=== PATIENT | female | born 1965 | race African-American/Black ===

== ENCOUNTER 2018-03-28 21:51 | Emergency (ER) | payer OTHER, SELFPAY ==
[2018-03-28] MEDS ORDERED: NA CHLORIDE 0.9% 1,000 ML ONE (23:36)
[2018-03-28 23:40] LABS: Absolute Monocytes 0.9 K/uL (0.1-1.3); Absolute Neutrophil 5.7 K/uL (1.8-8.0); Basophils % 0.6 % (0-1.3); Eosinophils % 1.2 % (0-4.4); Hematocrit 44.2 % (36.0-45.0); Lymphocytes % 22.7 % (15.3-44.8); MCH 33.7 pg (27.0-35.0); MCV 98.8 fL (80-100); MPV 9.6 fL (7.6-11.3); Monocytes % 9.8 % (3.3-12.3); RBC Red Blood Cell Count 4.47 M/uL (3.86-4.86)
[2018-03-28] MEDS ORDERED: TETRACAINE HCL 0.5% 2ML OPTH ONE (23:42)
[2018-03-29 00:13] LABS: ALT/SGPT 20 U/L (12-78); AST/SGOT 11 U/L (15-37); Albumin 3.6 g/dL (3.4-5.0); Alkaline Phosphatase 185 U/L (45-117); BUN Blood Urea Nitrogen 17 mg/dL (7-18); Bicarbonate 22 mmol/L (21-32); Bilirubin Total 0.3 mg/dL (0.2-1.0); Glucose Level 420 mg/dL (74-106); Potassium 3.8 mmol/L (3.5-5.1); Sodium Level 133 mmol/L (136-145)
[2018-03-29] MEDS ORDERED: NA CHLORIDE 0.9% 1,000 ML ONE (00:44)
[2018-03-29 00:57] LABS: Urine Blood NEGATIVE (NEG); Urine Glucose 2+ (NEG); Urine Protein NEGATIVE (NEG); Urine pH 5.5 (5.0-7.0)
--- NOTE | 2018-03-29 01:33 | ER ---
Nurse's Notes [facility] Name: Bela Tilley Age: 52 yrs Sex: Female : 1965 Arrival Date: 03/28/2018 Time: 21:56 Bed 23 Private MD: Diagnosis: Hyperglycemia, unspecified;Ocular pain, left eye Presentation: 03/28 22:00 Presenting complaint: Patient states: I have been dizzy and feeling funny for 3 weeks la1 so I checked my BGL and it was 531 at home a few minutes ago. Pt denies vomiting, denies pain. Pt denies known history of diabetes. Transition of care: patient was not received from another setting of care. Onset of symptoms was March 28, 2018. Risk Assessment: Do you want to hurt yourself or someone else? Patient reports no desire to harm self or others. Initial Sepsis Screen: Does the patient meet any 2 criteria? No. Patient's initial sepsis screen is negative. Does the patient have a suspected source of infection? No. Patient's initial sepsis screen is negative. Care prior to arrival: None. 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 - Social history:: Smoking status: Patient/guardian denies using tobacco. - Ebola Screening: : No symptoms or risks identified at this time. Screenin:05 Abuse screen: Denies threats or abuse. Nutritional screening: No deficits noted. la1 Tuberculosis screening: No symptoms or risk factors identified. Fall Risk None identified. Assessment: 23:05 General: Appears in no apparent distress. Behavior is calm, cooperative. Pain: Denies la1 pain. Neuro: Level of Consciousness is awake, alert, obeys commands, Oriented to person, place, time, situation. Cardiovascular: Capillary refill < 3 seconds Patient's skin is warm and dry. Respiratory: Airway is patent Respiratory effort is even, unlabored, Respiratory pattern is regular, symmetrical, Breath sounds are clear bilaterally. GI: No signs and/or symptoms were reported involving the gastrointestinal system. : Reports urinary frequency. 23:55 Reassessment: Patient appears in no apparent distress at this time. No changes from la1 previously documented assessment. Patient and/or family updated on plan of care and expected duration. Pain level reassessed. 12 01:55 Reassessment: Patient and/or family updated on plan of care and expected duration. Pain bb level reassessed. Patient is alert, oriented x 3, equal unlabored respirations, skin warm/dry/pink. pt instructed on need for follow-up appt with PCP for further evaluation, treatment, education on newly diagnosed diabetes. Pt verbalized understanding of and agrees to plan of care discharge instructions given pt ambulated with steady gait to exit. Vital Signs: 03/28 22:02 Pulse 78; Resp 16; Temp 97.5; Pulse Ox 98% on R/A; Height 5 ft. 3 in. (160.02 cm); la1 22:02 BP 157 / 87; la1 12 01:56 BP 149 / 91; Pulse 86; Resp 16 S; Temp 98.5(O); Pulse Ox 99% on R/A; bb Visual Acuity: 03/28 23:22 Left Eye Visual acuity 20/20, ; Right Eye Visual acuity 20/20, ; Both Eyes Visual jmm acuity 20/20; Without Lenses; 03/29 00:38 Left Eye Visual acuity 20/20, Pupil size 4 mm, ; Right Eye Visual acuity 20/20, Pupil la1 size 4 mm, ; Both Eyes Visual acuity 20/20; Without Lenses; ED Course: 03/28 21:56 Patient arrived in ED. es 22:01 Triage completed. la1 22:01 Arm band placed on left wrist. la1 23:05 Enrique Galo, MELI is Primary Nurse. la1 23:06 Bed in low position. Call light in reach. la1 23:09 Xavi Licona PA is PHCP. jm 23:09 Juan Henderson MD is Attending Physician. jmm 23:13 Inserted saline lock: 20 gauge in right antecubital area, using aseptic technique. la1 Blood collected. 03/29 01:31 Saud Camejo MD is Referral Physician. jm 01:57 No provider procedures requiring assistance completed. IV discontinued, intact, bb bleeding controlled, No redness/swelling at site. Pressure dressing applied. Administered Medications: 03/28 23:35 Drug: NS 0.9% 1000 ml Route: IV; Rate: 1 bolus; Site: right antecubital; mg2 03/29 01:22 Follow up: Response: No adverse reaction; IV Status: Completed infusion mg2 03/28 23:35 Drug: Tetracaine Drops 0.5 % 1 drops Route: Ophthalmic; Site: left eye; mg2 03/29 01:22 Follow up: Response: No adverse reaction; Marked relief of symptoms mg2 00:38 Drug: NS 0.9% 1000 ml Route: IV; Rate: 1 bolus; Site: right antecubital; la1 Point of Care Testing: Blood Glucose: 03/28 22:06 Blood Glucose: 450 mg/dL; la1 03/29 01:28 Blood Glucose: 279 mg/dL; bb Ranges: Outcome: 01:32 Discharge ordered by . apoorva 01:57 Discharged to home ambulatory. bb 01:57 Condition: stable 01:57 Discharge instructions given to patient, Instructed on discharge instructions, follow up and referral plans. medication usage, Demonstrated understanding of instructions, follow-up care, medications, Prescriptions given X 1. 01:58 Patient left the ED. bb Signatures: Xavi Licona PA PA jmm Salyer, Edna es Ballard, Brenda, RN RN bb Enrique Galo RN RN la1 Dillon Erickson RN RN mg2 Corrections: (The following items were deleted from the chart) 03/28 22:02 22:00 Presenting complaint: Patient states: I have been dizzy and feeling funny for 3 la1 weeks so I checked my BGL and it was 531 at home a few minutes ago. Pt denies vomiting, denies pain la1
--- NOTE | 2018-03-29 01:33 | EDPHYS ---
Physician Documentation [facility] Name: Bela Tilley Age: 52 yrs Sex: Female : 1965 Arrival Date: 03/28/2018 Time: 21:56 Bed 23 Private MD: ED Physician Juan Henderson HPI: 03/28 23:22 This 52 yrs old Black Female presents to ER via Ambulatory with complaints of High jmm Blood Sugar. 23:22 The patient or guardian reports hyperglycemia. Onset: The symptoms/episode jmm began/occurred gradually, 3 week(s) ago. Associated signs and symptoms: Pertinent positives: Pertinent negatives: vomiting. This is a 52 year old female with a history of htn that presents to the ED with complaints of elevated blood glucose with pain to the left eye. During episode of pain the patient states her vision becomes blurry during episode of pain. Patient denies headache. Denies temporal pain. Patient denies chest pain, shortness of breath. . 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 - Social history:: Smoking status: Patient/guardian denies using tobacco. - Ebola Screening: : No symptoms or risks identified at this time. ROS: 23:22 Constitutional: Negative for fever, chills, and weight loss, Cardiovascular: Negative jmm for chest pain, palpitations, and edema, Respiratory: Negative for shortness of breath, cough, wheezing, and pleuritic chest pain. 23:22 Back: Negative for injury and pain, MS/Extremity: Negative for injury and deformity, Skin: Negative for injury, rash, and discoloration, Neuro: Negative for headache, weakness, numbness, tingling, and seizure. 23:22 Eyes: Positive for pain. 23:22 All other systems are negative. Exam: 23:22 Constitutional: This is a well developed, well nourished patient who is awake, alert, jmm and in no acute distress. Head/Face: atraumatic. 23:22 ENT: Moist Mucus Membranes Neck: Trachea midline, Supple Chest/axilla: Normal chest wall appearance and motion. Cardiovascular: Regular rate and rhythm. No edema appreciated Respiratory: Normal respirations, no respiratory distress appreciated Abdomen/GI: Non distended, soft Skin: General appearance color normal MS/ Extremity: Moves all extremities, no obvious deformities appreciated, no edema noted to the lower extremities Neuro: Awake and alert, normal gait Psych: Behavior is normal, Mood is normal, Patient is cooperative and pleasant 23:22 Eyes: Extraocular movements: intact throughout, Conjunctiva: normal, Visual [place]: are intact, Intraocular pressure: right eye = 18mmHg, left eye = 21mmHg. Vital Signs: 22:02 Pulse 78; Resp 16; Temp 97.5; Pulse Ox 98% on R/A; Height 5 ft. 3 in. (160.02 cm); la1 22:02 BP 157 / 87; la1 03/29 01:56 BP 149 / 91; Pulse 86; Resp 16 S; Temp 98.5(O); Pulse Ox 99% on R/A; bb Visual Acuity: 03/28 23:22 Left Eye Visual acuity 20/20, ; Right Eye Visual acuity 20/20, ; Both Eyes Visual [facility] acuity 20/20; Without Lenses; 03/29 00:38 Left Eye Visual acuity 20/20, Pupil size 4 mm, ; Right Eye Visual acuity 20/20, Pupil la1 size 4 mm, ; Both Eyes Visual acuity 20/20; Without Lenses; MDM: 03/28 23:22 Patient medically screened. [facility] 03/29 01:30 Data reviewed: vital signs, nurses notes. Counseling: I had a detailed discussion with [facility] the patient and/or guardian regarding: the historical points, exam findings, and any diagnostic results supporting the discharge/admit diagnosis, lab results, the need for outpatient follow up, to return to the emergency department if symptoms worsen or persist or if there are any questions or concerns that arise at home. 01:30 ED course: Patient advised to follow up with opthalmology for further evaluation due to [facility] eye pain. IOP normal, VA normal. Glucose 279 on discharge. Will prescribe patient with metoformin. patient advised to follow up with pcp for management of DM. Patient is otherwise given return precautions for worsening symptoms. Patient understood and agrees with the plan of care. . 03/28 23:24 Order name: CBC with Diff [facility] 03/28 23:24 Order name: CMP [facility] 03/28 23:24 Order name: Ketone, Serum [facility] 03/28 23:39 Order name: Urine Dipstick--Ancillary (enter results) em 03/28 23:39 Order name: Urine --Ancillary (enter results) em 03/29 00:04 Order name: CBC with Automated Diff; Complete Time: 00:16 EDMS 03/29 00:14 Order name: Comprehensive Metabolic Panel; Complete Time: 01:38 EDMS 03/29 00:58 Order name: Urine --Ancillary; Complete Time: 01:10 EDMS 03/29 00:58 Order name: Urine Dipstick-Ancillary; Complete Time: 01:10 EDMS 03/29 01:28 Order name: Acetone Level; Complete Time: 01:38 EDMS 03/29 01:50 Order name: Glucose, Ancillary Testing EDNM 03/29 01:51 Order name: Glucose, Ancillary Testing EDNM 03/28 23:24 Order name: Saline Lock; Complete Time: 23:27 [facility] 03/28 23:24 Order name: Urine Dipstick-Ancillary (obtain specimen); Complete Time: 23:27 [facility] 03/29 00:24 Order name: Visual Acuity; Complete Time: 00:38 jm Administered Medications: 03/28 23:35 Drug: NS 0.9% 1000 ml Route: IV; Rate: 1 bolus; Site: right antecubital; mg2 03/29 01:22 Follow up: Response: No adverse reaction; IV Status: Completed infusion mg2 03/28 23:35 Drug: Tetracaine Drops 0.5 % 1 drops Route: Ophthalmic; Site: left eye; mg2 03/29 01:22 Follow up: Response: No adverse reaction; Marked relief of symptoms mg2 00:38 Drug: NS 0.9% 1000 ml Route: IV; Rate: 1 bolus; Site: right antecubital; la1 Point of Care Testing: Blood Glucose: 03/28 22:06 Blood Glucose: 450 mg/dL; la1 03/29 01:28 Blood Glucose: 279 mg/dL; bb Ranges: Critical Glucose Levels:Adult <50 mg/dl or >400 mg/dl <40 mg/dl or >180 mg/dl Disposition: 05:01 Co-signature as Attending Physician, Juan Henderson MD. rn Disposition: 03/29/18 01:32 Discharged to Home. Impression: Hyperglycemia, unspecified, Ocular pain, left eye. - Condition is Stable. - Discharge Instructions: Hyperglycemia. - Prescriptions for Metformin 500 mg Oral Tablet - take 1 tablet by ORAL route once daily for 7 days Then take 1 tablet with morning meals AND evening meals; 21 tablet. - Medication Reconciliation Form, Thank You Letter, Antibiotic Education, Prescription Opioid Use form. - Follow up: Saud Camejo MD; When: 2 - 3 days; Reason: Recheck today's complaints, Continuance of care, Re-evaluation by your physician. Follow up: Private Physician; When: 1 - 2 days; Reason: Recheck today's complaints, Continuance of care, Re-evaluation by your physician. Signatures: Dispatcher [employer] EDMS Xavi Licona PA PA jmm Ballard, Brenda, RN RN bb Juan Henderson MD MD rn Enrique Galo RN RN la1 Dillon Erickson RN RN mg2 Corrections: (The following items were deleted from the chart) 01:58 01:32 03/29/2018 01:32 Discharged to Home. Impression: Hyperglycemia, unspecified; bb Ocular pain, left eye. Condition is Stable. Forms are Medication Reconciliation Form, Thank You Letter, Antibiotic Education, Prescription Opioid Use. Follow up: Saud Camejo; When: 2 - 3 days; Reason: Recheck today's complaints, Continuance of care, Re-evaluation by your physician. Follow up: Private Physician; When: 1 - 2 days; Reason: Recheck today's complaints, Continuance of care, Re-evaluation by your physician. apoorva
== END 2018-03-29 01:58 | disposition home or self-care (01) ==
LOC: ER 21:51
DX: R73.9 Hyperglycemia, unspecified (principal); I10 Essential (primary) hypertension
CPT/HCPCS: 36415; 80053; 81003; 81025; 82010; 82962; 85025; 96360; 96361; 99284; J7030

== ENCOUNTER 2024-08-11 21:59 | Emergency (ER) | payer OTHER, SELFPAY ==
--- OUTSIDE RECORDS SUMMARY | 2024-08-11 22:04 | XMS REPORT | Continuity of Care Document ---
Author Name Unknown Address [address] [facility] [address] [place] [address] [facility] [place] Address [address] [facility] [address] [place] [address] Care Team Providers Care Traffic Superintendent Name Role Phone Gaudencio Felix BRAY Primary Care Physician [id number] [place] [address] Judy Attending Clinician Unavailab NATALIE Burciaga Attending Clinician Unavailable Natalie Turcios DNP Attending Clinician [phone] [facility] Attending Clinician Unavailable Philip Veliz NP Attending Clinician [phone] PHILIP VELIZ Attending Clinician Unavailab DANA Rucker Attending Clinician Unavailable DANA BELTRÁN Attending Clinician Unavailable Doctor Unassigned, [place] Attending Clinician U isis BASILIO DIANA Attending Clinician Unavailable DIANA BASILIO Attending Clinician Unavailable SAMARIA SONI Attending Clinician Unavailable Janine Gonzalez Attending Clinician Unavaila tylor case Attending Clinician Unavailable DANA BELTRÁN Admitting Clinician Unavailable DIANA BASILIO Admitting Clinician Unavailable Janine Gonzalez Admitting Clinician Unavaila tylor [email or web address] Admitting Clinician Unavailable Payers Payer Name Policy Type Policy Number Effective Date Expirati on Date Source [facility] [id number] [[id number]] BECKI [id number] 2021 00:00:00 2022 00:00:00 M[employer] GENERIC [id number] [id number] 00:00:00 BC[employer] 2 [id number] 2021 00:00:00 Problems Condition Name Condition Details Condition Category Status Onset Date Resolution Date Last Treatment Date Treating Clinician Comments Source Essential (primary) hypertensi on Essential (primary) hypertensi on Disease Active 10-19 00:00: 00 [facility] Leiomyoma of uterus Leiomyoma of uterus Disease Active 10-19 00:00: 00 [facility] Obesity (BMI 30-39.9) Obesity (BMI 30-39.9) Disease Active 09-01 00:00: 00 [facility] Gastroesop hageal reflux disease, unspecifie d whether esophagiti s present Gastroesop hageal reflux disease, unspecifie d whether esophagiti s present Disease Active 08-23 00:00: 00 [facility] Colon cancer screening Colon cancer screening Disease Resolve d 4- 00:00: 00 2023-09-02 00:00:00 2023-09-02 14:24:26 [facility] Allergies, Adverse Reactions, Alerts Allergy Name Allergy Type Status Severity Reaction(s) Onset Date Inactive Date Treating Clinician Comments Source No Known Allergie s DA Active U 2018-04 00:00: 00 [facility] are [facility] NO KNOWN ALLERGIE S Drug Class Active [facility] Social History Social Habit Start Date Stop Date Quantity Comments Source [facility] Alcoholic beverage intake 2023-11-20 00:00:00 2023-11-20 00:00:00 .14 /d [facility] Alcohol intake 2023-08-24 00:00:00 2023-08-24 00:00:00 .14 /d [facility] Tobacco use and exposure 2023-08-14 00:00:00 2023-08-14 00:00:00 Smokeless tobacco non-user [facility] History of Social function 2023-08-14 00:00:00 2023-08-14 00:00:00 [facility] Alcohol Comment 2023-08-14 00:00:00 2023-08-14 00:00:00 rarely [facility] Sex assigned at 1965 00:00:00 1965 00:00:00 [facility] Smoking Status Start Date Stop Date Source Never smoked tobacco [facility] Medications Ordered Medication Name Filled Medication Name Start Date Stop Date Current Medication? Ordering Clinician Indication Dosage Frequency Signature (SIG) Comments Components Source furosemide 40 mg tablet 07-26 00:00: 00 Yes 1mg Bobby Herrera lisinopril 40 mg tablet 07-26 00:00: 00 Yes 1mg Bobby Herrera Tresiba FlexTouch U-100 insulin 100 unit/mL (3 mL) subcutaneou s pen - 00:00: 00 Yes (3 mL) Bobby Herrera atorvastati n 20 mg tablet 3- 00:00: 00 Yes 1mg Bobby Herrera lisinopril 20 mg tablet - 00:00: 00 Yes 1mg Bobby Herrera amlodipine 10 mg tablet 3-30 00:00: 00 Yes 1mg Bobby Herrera Jardiance 25 mg tablet -30 00:00: 00 Yes 1mg Bobby Herrera amlodipine 10 mg tablet - 00:00: 00 Yes 1mg Bobby Herrera Tresiba FlexTouch U-100 insulin 100 unit/mL (3 mL) subcutaneou s pen 3- 00:00: 00 Yes (3 mL) Bobby Herrera atorvastati n 20 mg tablet 0 3-10 00:00: 00 Yes 1mg Bobby Herrera lisinopril 20 mg tablet 0 3-10 00:00: 00 Yes 1mg Bobby Herrera amlodipine 5 mg tablet 0 3-10 00:00: 00 Yes 1mg Bobby Herrera Jardiance 25 mg tablet 0 3-10 00:00: 00 Yes 1mg Bobby Herrera Tresiba FlexTouch U-100 insulin 100 unit/mL (3 mL) subcutaneou s pen 2024-0 2-10 00:00: 00 Yes (3 mL) Bobby Herrera atorvastati n 20 mg tablet 0 2-10 00:00: 00 Yes 1mg Bobby Herrera lisinopril 20 mg tablet 0 2-10 00:00: 00 Yes 1mg Bobby Herrera amlodipine 5 mg tablet 0 2-10 00:00: 00 Yes 1mg Bobby Herrera Jardiance 10 mg tablet 0 2-10 00:00: 00 Yes 1mg Bobby Herrera Lantus Solostar U-100 Insulin 100 unit/mL (3 mL) subcutaneou s pen 2024-0 1-30 00:00: 00 Yes (3 mL) Bobby Herrera Tresiba FlexTouch U-100 insulin 100 unit/mL (3 mL) subcutaneou s pen 5-0 1-30 00:00: 00 Yes (3 mL) Bobby Herrera atorvastati n 20 mg tablet 0 1-09 00:00: 00 Yes 1mg Bobby Herrera lisinopril 20 mg tablet 0 1-09 00:00: 00 Yes 1mg Bobby Herrera glipizide 10 mg tablet 0 1-09 00:00: 00 Yes 1mg Bobby Herrera amlodipine 5 mg tablet -09 00:00: 00 Yes 1mg Bobby Herrera amLODIPine 5 mg tablet 0 - 00:00: 00 Yes [id number] 5mg Take 1 tablet by mouth in the morning. [facility] atorvastati n 20 mg tablet - 00:00: 00 Yes [id number] 20mg Take 1 tablet by mouth at bedtime. [facility] lisinopriL 20 mg tablet 11-19 00:00: 00 Yes [id number] 20mg Take 1 tablet by mouth in the morning. [facility] glipiZIDE 10 mg tablet 11-19 00:00: 00 Yes [id number] 10mg Take 1 tablet by mouth in the morning. [facility] semaglutide (OZEMPIC) 0.25 mg or 0.5 mg(2 mg/1.5 mL) PnIj 11-19 00:00: 00 01-19 04:59 :00 No [id number] .5mg inject 0.5 mg under the skin weekly for 60 days. [facility] gadobenate dimeglumine (MULTIHANCE -20 mL) injection 17.3 mL 10-24 22:00: 00 10-24 21:49 :00 No [id number] .2mL/kg 17.3 mL (0.2 mL/kg ?86.5 kg), Intravenou s, ONCE, 1 dose, On Thu10/25/23 at 1700, Routine [facility] miSOPROStoL 200 mcg tablet 10-19 00:00: 00 Yes [id number] 200ug Take 1 tablet by mouth every 12 (twelve) hours. [facility] water for irrigation irrigation solution 09-17 12:28: 09-17 12:52 :15 No PRN, Starting on Thu09/18/23 at 0728, Until Thu09/18/23 at 0752, Routine, Intra-op [facility] simethicone (GAS RELIEF (SIMETHICON E)) 40 mg/0.6 mL drops 09-17 12:28: 00 09-17 12:52 :15 No PRN, Starting on Thu09/18/23 at 0728, Until Thu09/18/23 at 0752, Routine, Intra-op [facility] lactated ringers IV infusion 1,000 mL 09-17 11:45: 00 09-17 11:57 :00 No 1000mL at 42 mL/hr, 1,000 mL, IV Infusion, ONCE, 1 dose, On Thu09/18/23 at 0645, Routine, DSU Pre-op [facility] semaglutide (OZEMPIC) 0.25 mg or 0.5 mg (2 mg/3 mL) PnIj 09-06 00:00: 00 11-06 04:59 :00 No [id number] .5mg inject 0.5 mg under the skin weekly for 60 days. [facility] atorvastati n 20 mg tablet 09-03 00:00: 00 11-19 00:00 :00 No [id number] 20mg Take 1 tablet by mouth at bedtime. [facility] metroNIDAZO LE 500 mg tablet 09-03 00:00: 00 09-11 04:59 :00 No [id number] 500mg Take 1 tablet by mouth in the morning and 1 tablet in the evening. Do all this for 7 days. [facility] atorvastati n 20 mg tablet 08-23 00:00: 00 09-03 00:00 :00 No [id number] 20mg Take 1 tablet by mouth at bedtime. [facility] peg-electro lyte soln 236-22.74-6 .74 -5.86 gram solution 08-23 00:00: 00 08-24 04:59 :00 No [id number] 4000mL Take 4,000 mL by mouth once now for 1 dose. [facility] blood sugar diagnostic strip 08-13 00:00: 00 Yes [id number] Check blood sugar 2x times a day. E11.9. Brand per insurance. [facility] amLODIPine 5 mg tablet 08-13 00:00: 00 11-19 00:00 :00 No [id number] 5mg Take 1 tablet by mouth in the morning. [facility] lisinopriL 20 mg tablet 08-13 00:00: 00 11-19 00:00 :00 No [id number] 20mg Take 1 tablet by mouth in the morning. [facility] glipiZIDE 10 mg tablet 08-13 00:00: 00 11-19 00:00 :00 No [id number] 10mg Take 1 tablet by mouth in the morning. [facility] semaglutide (OZEMPIC) 0.25 mg or 0.5 mg (2 mg/3 mL) PnIj 08-13 00:00: 00 11-19 00:00 :00 No [id number] .25mg inject 0.25 mg under the skin weekly. [facility] semaglutide (OZEMPIC) 0.25 mg or 0.5 mg(2 mg/1.5 mL) PnIj 08-13 00:00: 00 08-13 00:00 :00 No [id number] .25mg inject 0.25 mg under the skin weekly. [facility] nifedipine ER 60 mg tablet,exte nded release 2019-04 00:00: 00 Yes 1mg Bobby Herrera metformin 500 mg tablet 2019-04 00:00: 00 Yes 2mg Bobby Herrera nifedipine ER 60 mg tablet,exte nded release 06-07 00:00: 00 Yes 1mg Bobby Herrera metformin 500 mg tablet 06-07 00:00: 00 Yes mg Bobby Herrera sumatriptan 25 mg tablet 06-07 00:00: 00 Yes 1mg Bobby Herrera nifedipine ER 60 mg tablet,exte nded release 05-31 00:00: 00 Yes 1mg Bobby Herrera metformin 500 mg tablet 05-31 00:00: 00 Yes mg Bobyb Herrera nifedipine ER 60 mg tablet,exte nded release 2018-04 00:00: 00 Yes 1mg Bobby Herrera folic acid 1 mg tablet 2018-04 00:00: 00 Yes 1mg Bobby Herrera metformin 500 mg tablet 2018-04 00:00: 00 Yes mg Bobby Herrera ferrous sulfate 325 mg (65 mg iron) tablet 2018-04 00:00: 00 Yes 1(65 mg iron) Bobby Herrera folic acid 1 mg tablet 10-27 00:00: 00 Yes 1mg Bobby Herrera nifedipine ER 60 mg tablet,exte nded release 10-27 00:00: 00 Yes 1mg Bobby Herrera metformin 500 mg tablet 10-27 00:00: 00 Yes mg Bobby Herrera ferrous sulfate 325 mg (65 mg iron) tablet 10-27 00:00: 00 Yes 1(65 mg iron) Bobby Herrera metformin 500 mg tablet 08-04 00:00: 00 Yes mg Bobby Herrera folic acid 1 mg tablet 07-02 00:00: 00 Yes 1mg Bobby Herrera nifedipine ER 60 mg tablet,exte nded release 07-02 00:00: 00 Yes 1mg Bobby Herrera folic acid 1 mg tablet 06-29 00:00: 00 Yes 1mg oBbby Herrera nifedipine ER 60 mg tablet,exte nded release 06-29 00:00: 00 Yes 1mg Bobby Herrera folic acid 1 mg tablet 05-12 00:00: 00 Yes 1mg Bobby Herrera nifedipine ER 60 mg tablet,exte nded release 05-12 00:00: 00 Yes 1mg Bobby Herrera metformin 500 mg tablet 05-12 00:00: 00 Yes mg Bobby Herrera ferrous sulfate 325 mg (65 mg iron) tablet 05-12 00:00: 00 Yes 1(65 mg iron) Bobby Herrera metformin 500 mg tablet 05-07 00:00: 00 Yes 1mg Bobby Herrera nifedipine ER 60 mg tablet,exte nded release 05-07 00:00: 00 Yes 1mg Bobby Herrera folic acid 1 mg tablet 05-07 00:00: 00 Yes 1mg Bobby Herrera ferrous sulfate 325 mg (65 mg iron) tablet 05-07 00:00: 00 Yes 1(65 mg iron) Bobby Herrera Immunizations Ordered Immunization Name Filled Immunization Name Date Status Comments Source meningococcal MCV4P meningococcal MCV4P 00:00:00 Completed Bobby Herrera Vital Signs Vital Name Observation Time Observation Value Comments S ource Systolic blood pressure 2023-11-20 16:32:00 136 mm[Hg] [facility] Diastolic blood pressure 2023-11-20 16:32:00 85 mm[Hg] [facility] Heart rate 2023-11-20 16:32:00 79 /min [facility] Body temperature 2023-11-20 16:32:00 36.28 Peggy [facility] Body height 2023-11-20 16:32:00 160 cm [facility] Body weight 2023-11-20 16:32:00 84.46 kg [facility] BMI 2023-11-20 16:32:00 32.98 kg/m2 [facility] Oxygen saturation in Arterial blood by Pulse oximetry 2023-11-20 16:32:00 99 /min [facility] Systolic blood pressure 2023-10-28 18:56:00 113 mm[Hg] [facility] Diastolic blood pressure 2023-10-28 18:56:00 72 mm[Hg] [facility] Heart rate 2023-10-28 18:56:00 107 /min [facility] Respiratory rate 2023-10-28 18:56:00 17 /min [facility] Body height 2023-10-28 18:56:00 160 cm [facility] Body weight 2023-10-28 18:56:00 86.183 kg [facility] BMI 2023-10-28 18:56:00 33.66 kg/m2 [facility] Systolic blood pressure 2023-10-23 18:16:00 142 mm[Hg] [facility] Diastolic blood pressure 2023-10-23 18:16:00 93 mm[Hg] [facility] Heart rate 2023-10-23 18:12:00 90 /min [facility] Body weight 2023-10-23 18:12:00 86.456 kg [facility] BMI 2023-10-23 18:12:00 33.76 kg/m2 [facility] Systolic blood pressure 2023-10-20 19:30:00 149 mm[Hg] [facility] Diastolic blood pressure 2023-10-20 19:30:00 93 mm[Hg] [facility] Heart rate 2023-10-20 19:29:00 94 /min [facility] Body temperature 2023-10-20 19:29:00 36.89 Peggy [facility] Respiratory rate 2023-10-20 19:29:00 18 /min [facility] Body height 2023-10-20 19:29:00 160 cm [facility] Body weight 2023-10-20 19:29:00 87.544 kg [facility] BMI 2023-10-20 19:29:00 34.19 kg/m2 [facility] Systolic blood pressure 2023-09-18 13:27:00 165 mm[Hg] [facility] Diastolic blood pressure 2023-09-18 13:27:00 83 mm[Hg] [facility] Heart rate 2023-09-18 13:27:00 76 /min [facility] Respiratory rate 2023-09-18 13:27:00 18 /min [facility] Oxygen saturation in Arterial blood by Pulse oximetry 2023-09-18 13:27:00 100 /min [facility] Body temperature 2023-09-18 12:50:00 36.22 Peggy [facility] Body weight 2023-09-17 14:00:00 89.359 kg [facility] BMI 2023-09-17 14:00:00 34.90 kg/m2 [facility] Heart rate 2023-09-18 13:22:00 82 /min [facility] Respiratory rate 2023-09-18 13:22:00 19 /min [facility] Oxygen saturation in Arterial blood by Pulse oximetry 2023-09-18 13:22:00 99 /min [facility] Systolic blood pressure 2023-09-18 13:19:00 172 mm[Hg] [facility] Diastolic blood pressure 2023-09-18 13:19:00 105 mm[Hg] [facility] Body temperature 2023-09-18 12:50:00 36.22 Peggy [facility] Body weight 2023-09-17 14:00:00 89.359 kg [facility] BMI 2023-09-17 14:00:00 34.90 kg/m2 [facility] Systolic blood pressure 2023-09-02 17:49:00 144 mm[Hg] [facility] Diastolic blood pressure 2023-09-02 17:49:00 90 mm[Hg] [facility] Heart rate 2023-09-02 17:40:00 76 /min [facility] Body temperature 2023-09-02 17:40:00 36.28 Peggy [facility] Respiratory rate 2023-09-02 17:40:00 18 /min [facility] Body height 2023-09-02 17:40:00 160 cm [facility] Body weight 2023-09-02 17:40:00 88.361 kg [facility] BMI 2023-09-02 17:40:00 34.51 kg/m2 [facility] Systolic blood pressure 2023-08-24 19:06:00 175 mm[Hg] [facility] Diastolic blood pressure 2023-08-24 19:06:00 106 mm[Hg] [facility] Heart rate 2023-08-24 19:06:00 88 /min [facility] Oxygen saturation in Arterial blood by Pulse oximetry 2023-08-24 19:06:00 97 /min [facility] Body temperature 2023-08-24 19:00:00 37.17 Peggy [facility] Respiratory rate 2023-08-24 19:00:00 18 /min [facility] Body height 2023-08-24 19:00:00 160 cm [facility] Body weight 2023-08-24 19:00:00 89.54 kg [facility] BMI 2023-08-24 19:00:00 34.97 kg/m2 [facility] Systolic blood pressure 2023-08-14 16:44:00 149 mm[Hg] [facility] Diastolic blood pressure 2023-08-14 16:44:00 89 mm[Hg] [facility] Heart rate 2023-08-14 16:39:00 79 /min [facility] 2023-08-14 16:39:00 36.67 Peggy [facility] Body height 2023-08-14 16:39:00 160 cm [facility] Body weight 2023-08-14 16:39:00 89.767 kg [facility] BMI 2023-08-14 16:39:00 35.06 kg/m2 [facility] Oxygen saturation in Arterial blood by Pulse oximetry 2023-08-14 16:39:00 98 /min [facility] BP Systolic 2024-07-26 13:32:00 134 mm[Hg] Step hen F Javier BP Diastolic 2024-07-26 13:32:00 77 mm[Hg] Cash phen F Javier Weight Measured 2024-07-26 13:32:00 208.20 pounds Bobby F Javier Height Measured 2024-07-26 13:32:00 63.00 inches Bobby F Javier Body Temperature 2024-07-26 13:32:00 97.80 degrees Bobby F Javier Heart Rate 2024-07-26 13:32:00 83.00 /min Halina en F Javier Respiratory Rate 2024-07-26 13:32:00 17.00 /min Bobby F Javier BP Systolic 2024-07-04 13:48:00 124 mm[Hg] Step hen F Javier BP Diastolic 2024-07-04 13:48:00 75 mm[Hg] Cash phen F Javier Weight Measured 2024-07-04 13:48:00 199.00 pounds Bobyb F Javier Height Measured 2024-07-04 13:48:00 63.00 inches Bobby F Javier Body Temperature 2024-07-04 13:48:00 97.00 degrees Bobby F Javier Heart Rate 2024-07-04 13:48:00 92.00 /min Halina en F Javier Respiratory Rate 2024-07-04 13:48:00 18.00 /min Bobby F Javier BP Systolic 2024-06-06 14:38:00 161 mm[Hg] Step hen F Ajvier BP Diastolic 2024-06-06 14:38:00 84 mm[Hg] Cash phen F Javier Weight Measured 2024-06-06 14:38:00 197.60 pounds Bobby F Javier Height Measured 2024-06-06 14:38:00 63.00 inches Bobby F Javier Body Temperature 2024-06-06 14:38:00 98.10 degrees Bobby F Javier Heart Rate 2024-06-06 14:38:00 84.00 /min Halina en F Javier Respiratory Rate 2024-06-06 14:38:00 18.00 /min Bobby F Javier BP Systolic 2024-06-06 14:20:00 161 mm[Hg] Step hen F Javier BP Diastolic 2024-06-06 14:20:00 84 mm[Hg] Cash phen F Javier Weight Measured 2024-06-06 14:20:00 197.60 pounds Bobby F Javier Height Measured 2024-06-06 14:20:00 63.00 inches Bobby F Javier Body Temperature 2024-06-06 14:20:00 98.10 degrees Bobby F Javier Heart Rate 2024-06-06 14:20:00 84.00 /min Halina en F Javier Respiratory Rate 2024-06-06 14:20:00 18.00 /min Bobby F Javier BP Systolic 2024-06-06 14:09:00 161 mm[Hg] Step hen F Javier BP Diastolic 2024-06-06 14:09:00 84 mm[Hg] Cash phen F Javier Weight Measured 2024-06-06 14:09:00 197.60 pounds Bobby F Javier Height Measured 2024-06-06 14:09:00 63.00 inches Bobby F Javier Body Temperature 2024-06-06 14:09:00 98.10 degrees Bobby F Javier Heart Rate 2024-06-06 14:09:00 84.00 /min Halina en F Javier Respiratory Rate 2024-06-06 14:09:00 18.00 /min Bobby F Javier BP Systolic 2024-05-05 15:06:00 148 mm[Hg] Step hen F Javier BP Diastolic 2024-05-05 15:06:00 84 mm[Hg] Cash phen F Javier Weight Measured 2024-05-05 15:06:00 186.80 pounds Bobby F Javier Height Measured 2024-05-05 15:06:00 63.00 inches Bobby F Javier Body Temperature 2024-05-05 15:06:00 97.80 degrees Bobby F Javier Heart Rate 2024-05-05 15:06:00 95.00 /min Halina en F Javier Respiratory Rate 2024-05-05 15:06:00 18.00 /min Bobby F Javier BP Systolic 2019-06-07 08:54:00 137 mm[Hg] Step hen F Javier BP Diastolic 2019-06-07 08:54:00 82 mm[Hg] Cash phen F Javier Weight Measured 2019-06-07 08:54:00 199.60 pounds Bobby F Javier Height Measured 2019-06-07 08:54:00 63.00 inches Bobby F Javier Body Temperature 2019-06-07 08:54:00 97.80 degrees Bobby F Javier Heart Rate 2019-06-07 08:54:00 81.00 /min Halina en F Javier Respiratory Rate 2019-06-07 08:54:00 17.00 /min Bobby F Javier BP Systolic 2019-05-31 10:23:00 187 mm[Hg] Step hen F Javier BP Diastolic 2019-05-31 10:23:00 112 mm[Hg] Cash phen F Javier Weight Measured 2019-05-31 10:23:00 202.00 pounds Bobby F Javier Height Measured 2019-05-31 10:23:00 63.00 inches Bobby F Javier Body Temperature 2019-05-31 10:23:00 97.90 degrees Bobby F Javier Heart Rate 2019-05-31 10:23:00 79.00 /min Halina en F Javier Respiratory Rate 2019-05-31 10:23:00 19.00 /min Bobby F Javier BP Systolic 2018-10-27 14:48:00 166 mm[Hg] Step hen F Javier BP Diastolic 2018-10-27 14:48:00 83 mm[Hg] Cash phen F Javier Weight Measured 2018-10-27 14:48:00 213.80 pounds Bobby F Javier Height Measured 2018-10-27 14:48:00 63.00 inches Bobby F Javier Body Temperature 2018-10-27 14:48:00 97.90 degrees Bobby F Javier Heart Rate 2018-10-27 14:48:00 79.00 /min Halina en F Javier Respiratory Rate 2018-10-27 14:48:00 16.00 /min Bobby F Javier BP Systolic 2018-07-02 14:17:00 110 mm[Hg] Step hen F Javier BP Diastolic 2018-07-02 14:17:00 61 mm[Hg] Cash phen F Javier Weight Measured 2018-07-02 14:17:00 215.40 pounds Bobby F Javier Height Measured 2018-07-02 14:17:00 63.39 inches Bobby F Javier Body Temperature 2018-07-02 14:17:00 98.80 degrees Bobby F Javier Heart Rate 2018-07-02 14:17:00 100.00 /min Step hen F Javier Respiratory Rate 2018-07-02 14:17:00 20.00 /min Bobby F Javier BP Systolic 2018-05-21 08:13:00 122 mm[Hg] Step hen F Javier BP Diastolic 2018-05-21 08:13:00 77 mm[Hg] Cash phen F Javier Weight Measured 2018-05-21 08:13:00 211.60 pounds Bobby F Javier Height Measured 2018-05-21 08:13:00 63.39 inches Bobby F Javier Body Temperature 2018-05-21 08:13:00 98.20 degrees Bobby F Javier Heart Rate 2018-05-21 08:13:00 94.00 /min Halina en F Javier Respiratory Rate 2018-05-21 08:13:00 Bobby F Javier BP Systolic 2018-05-07 08:53:00 141 mm[Hg] Step hen F Javier BP Diastolic 2018-05-07 08:53:00 82 mm[Hg] Cash phen F Javier Weight Measured 2018-05-07 08:53:00 215.60 pounds Bobby F Javier Height Measured 2018-05-07 08:53:00 63.39 inches Bobby F Javier Body Temperature 2018-05-07 08:53:00 98.00 degrees Bobby F Javier Heart Rate 2018-05-07 08:53:00 84.00 /min Halina en F Javier Respiratory Rate 2018-05-07 08:53:00 16.00 /min Bobby F Javier Procedures Procedure Date / Time Performed Performing Clinician Source CBC WITH DIFF 2023-11-20 17:10:00 Philip Veliz [facility] POCT TEST 2023-10-23 00:00:00 Adum, Dana Guillen [facility] GC & CHLAMYDIA AMPLIFIED ASSAY 2023-10-20 20:21:00 Adum, Dana Guillen [facility] TRICHOMONAS AMPLIFIED ASSAY 2023-10-20 20:21:00 Adum, Dana Guillen [facility] COLONOSCOPY (ENDO) 2023-09-18 12:53:07 Nora Veliz [facility] COLONOSCOPY (ENDO) 2023-09-18 12:53:07 Nora Veliz [facility] [id number] - [place] COLONOSCOPY W/BIOPSY SINGLE/MULTIPLE 2023-09-18 12:11:00 [facility] [id number] - [place] EGD TRANSORAL BIOPSY SINGLE/MULTIPLE 2023-09-18 12:11:00 [facility] POCT GLUCOSE (AUTOMATED) 2023-09-18 11:54:00 [facility] POCT GLUCOSE (AUTOMATED) 2023-09-18 11:54:00 [facility] FREE T4 2023-08-14 18:24:00 Philip Veliz Un [facility] THYROID STIMULATING HORMONE 2023-08-14 18:24:00 Philip Veliz [facility] COMP. METABOLIC PANEL ([id number]) 2023-08-14 18:24:00 Philip Veliz [facility] LIPID PANEL ([id number])(TOTAL CHOLESTEROL, TRIGLYCERIDES, HDL) 2023-08-14 18:24:00 Phliip Veliz [facility] CBC WITH DIFF 2023-08-14 18:24:00 Philip Veliz [facility] GLYCOSYLATED HEMOGLOBIN (A1C) 2023-08-14 18:24:00 Philip Veliz [facility] FREE T3 2023-08-14 18:24:00 Philip Veliz Un [facility] POCT HEMOGLOBIN A1C TEST 2023-08-14 17:24:00 Philip Veliz [facility] Encounters Start Date/Time End Date/Time Encounter Type Admission Type Attending [facility] Care Department Encounter ID Source 2021-12-31 10:04:40 Outpatient Judy Fisher [facility] [id number] [facility] 2024-09-02 13:30:00 2024-09-02 13:30:00 Outpatient R NATALIE TURCIOS [facility] [id number] [facility] 2024-07-26 13:21:45 2024-07-26 13:21:45 Outpatient SFA SFA [id number] Bobby Herrera 2024-07-26 00:00:00 2024-07-26 00:00:00 Outpatient Visit SFA [id number] Bobby Herrera 2024-07-04 13:42:21 2024-07-04 13:42:21 Outpatient SFA SFA [id number] Bobby Herrera 2024-07-04 00:00:00 2024-07-04 00:00:00 Outpatient Visit SFA [id number] Bobby Herrera 2024-06-23 13:41:30 2024-06-23 13:41:30 Outpatient SFA SFA [id number] Bobby Herrera 2024-06-06 16:02:15 2024-06-06 16:02:15 Outpatient SFA SFA [id number] Bobby Herrera 2024-06-06 00:00:00 2024-06-06 00:00:00 Outpatient Visit SFA [id number] Bobby Herrera 2024-06-06 00:00:00 2024-06-06 00:00:00 Outpatient Visit SFA [id number] Bobby Herrera 2024-05-05 15:20:37 2024-05-05 15:20:37 Outpatient SFA [facility] [id number] Bobby Herrera 2024-05-05 00:00:00 2024-05-05 00:00:00 Outpatient Visit [facility] [id number] Bobby Herrera 2024-02-11 00:00:00 2024-02-23 12:06:56 Telephone Natalie Turcios [facility] 1.2.840.114 350.1.13.10 4.2.7.2.686 [id number] [facility] 2024-02-11 00:00:00 2024-02-12 15:13:07 Telephone Natalie Turcios [facility] 1.2.840.114 350.1.13.10 4.2.7.2.686 [id number] [facility] 2023-12-30 10:30:00 2023-12-30 10:30:00 Outpatient R NATALIE TURCIOS [facility] [id number] [facility] 2023-12-04 14:00:00 2023-12-04 14:00:00 Outpatient R GIRISHNIKKONATALIE SCHROEDER [facility] [id number] [facility] 2023-11-20 13:00:00 2023-11-20 13:15:00 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, Adc Lab Amarjit Velizиринаkacy [facility] 1.2.840.114 350.1.13.10 4.2.7.2.686 [id number] [facility] 2023-11-20 11:30:00 2023-11-20 12:52:05 Office Visit Elva Velizshakirjosefa [facility] 1.2.840.114 350.1.13.10 4.2.7.2.686 [id number] [facility] 2023-11-20 11:30:00 2023-11-20 12:52:05 Outpatient R PHILIP VELIZ PHILIP [facility] [id number] [facility] 2023-09-29 00:00:00 2023-10-31 18:21:18 Patient Secure Msg Natalie Turcios [facility] 1..840.114 350.1.13.10 4.2.7.2.686 [id number] [facility] 2023-10-28 14:00:00 2023-10-28 14:31:22 Outpatient R DANA BELTRÁN [facility] [id number] [facility] 2023-10-28 14:00:00 2023-10-28 14:31:22 Office Visit Leigh Ann [facility] 1..114 350.1.13.10 4.2.7.2.686 [id number] [facility] 2023-10-27 00:00:00 2023-10-27 15:15:12 Patient Secure Msg Doctor Unassigned, [place] [facility] 1..840.114 350.1.13.10 4.2.7.2.686 [id number] [facility] 2023-10-25 14:41:29 2023-10-25 23:59:00 Outpatient R DANA BELTRÁN [facility] [id number] [facility] 2023-10-25 14:41:29 2023-10-25 23:59:00 Hospital Encounter Leigh Ann [facility] 1.840.114 350.1.13.10 4.2.7.2.686 [id number] [facility] 2023-10-23 13:00:00 2023-10-23 13:51:48 Outpatient R ADDANA GAVIN VIVIAN [facility] [id number] [facility] 2023-10-23 13:00:00 2023-10-23 13:51:48 Office Visit Dana Beltrán [facility] 1.2.840.114 350.1.13.10 4.2.7.2.686 [id number] [facility] 2023-10-20 14:30:00 2023-10-20 15:17:25 Outpatient R DANA BELTRÁN V[facility] [id number] [facility] 2023-10-20 14:30:00 2023-10-20 15:17:25 Office Visit Dana Beltrán [facility] 1.2.840.114 350.1.13.10 4.2.7.2.686 [id number] [facility] 2023-10-13 15:00:00 2023-10-13 15:00:00 Outpatient R DANA BELTRÁN [facility] [id number] [facility] 2023-10-09 00:00:00 2023-10-12 14:27:34 Telephone JoseNatalie [facility] 1.2.840.114 350.1.13.10 4.2.7.2.686 [id number] [facility] 2023-10-12 00:00:00 2023-10-12 14:13:20 Telephone Jose Natalie [facility] 1.2.840.114 350.1.13.10 4.2.7.2.686 [id number] 134 [id number] [facility] 2023-10-09 00:00:00 2023-10-09 09:10:38 Case Management Natalie Turcios [facility] 1.2.840.114 350.1.13.10 4.2.7.2.686 [id number] [facility] 2023-09-29 00:00:00 2023-09-29 09:26:35 Case Management Natalie Turcios [facility] 1.2.840.114 350.1.13.10 4.2.7.2.686 [id number] [facility] 2023-08-20 00:00:00 2023-09-26 18:12:09 Patient Secure Msg Doctor Unassigned, [place] [facility] 1.2.840.114 350.1.13.10 4.2.7.2.686 [id number] [facility] 2023-09-25 13:29:32 2023-09-25 23:59:00 Hospital Encounter Natalie Turcios [facility] 1.2840.114 350.1.13.10 4.2.7.2.686 [id number] [facility] 2023-09-25 13:26:44 2023-09-25 13:28:00 Outpatient R NATALIE TURCIOS [facility] [id number] [facility] 2023-09-25 13:26:44 2023-09-25 13:28:00 Hospital Encounter Natalie Turcios [facility] 1.2.840.114 350.1.13.10 4.2.7.2.686 [id number] [facility] 2023-09-18 06:28:00 2023-09-18 08:48:00 Outpatient R DIANA BASILIO [facility] LEANA [id number] [facility] 2023-09-18 06:28:00 2023-09-18 08:48:00 Hospital Encounter Sofie [facility] [place] 1.2.840.114 350.1.13.10 4.2.7.2.686 [id number] [facility] 2023-09-18 07:20:00 2023-09-18 08:22:00 Surgery Diana Basilio [facility] 1.2.840.114 350.1.13.10 4.2.7.2.686 [id number] [facility] 2023-09-04 00:00:00 2023-09-04 14:43:36 Telephone Philip Veliz [facility] 1.2.840.114 350.1.13.10 4.2.7.2.686 [id number] [facility] 2023-09-04 00:00:00 2023-09-04 10:38:03 [facility]ill [facility] 1.2.840.114 350.1.13.10 4.2.7.2.686 [id number] [facility] 2023-09-02 00:00:00 2023-09-02 14:20:07 Refill Philip Veliz [facility] 1.2.840.114 350.1.13.10 4.2.7.2.686 [id number] [facility] 2023-09-02 13:00:00 2023-09-02 13:16:05 [facility] 1.2.840.114 350.1.13.10 4.2.7.2.686 [id number] [facility] 2023-09-02 13:00:00 2023-09-02 13:16:05 Outpatient R NATALIE TURCIOS [facility] [id number] [facility] 2023-08-24 14:30:00 2023-08-24 14:39:52 Outpatient R DIANA BASILIO [facility] [id number] [facility] 2023-08-24 14:30:00 2023-08-24 14:39:52 Office Visit [facility] 1.2.840.114 350.1.13.10 4.2.7.2.686 [id number] [facility] 2023-08-14 13:00:00 2023-08-14 13:15:00 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, 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 Philip Veliz [facility] N[facility] 1.2.840.114 350.1.13.10 4.2.7.2.686 [id number] [facility] 2023-08-14 11:00:00 2023-08-14 12:25:29 Outpatient R PHILIP VELIZ OGECHUKWU [facility] [id number] [facility] 2023-08-14 11:00:00 2023-08-14 12:25:29 Office Visit [facility] 1.2.840.114 350.1.13.10 4.2.7.2.686 [id number] [facility] 2023-08-14 00:00:00 2023-08-14 00:00:00 Telephone Philip Veliz [facility] N[facility] 1.2.840.114 350.1.13.10 4.2.7.2.686 [id number] [facility] 2022-03-13 00:00:00 2022-03-13 00:00:00 Outpatient Natalia July [facility] [id number] [facility] 2021-12-31 16:23:44 2021-12-31 16:23:44 Outpatient 2.16.540. [id number] 2.16.540.1. [id number] [facility] 2021-12-26 08:00:00 2021-12-26 08:00:00 Outpatient SAMARIA SONI PIEDAD [id number] Piedad Lassiter 2020-01-27 09:00:00 2020-01-27 09:00:00 Outpatient Janine Gonzalez [facility] [id number] [facility] 2020-01-12 02:20:00 2020-01-12 02:20:00 Outpatient manpreet [facility] [id number] [facility] e Results Test Description Test Time Test Comments Results Result Co mments Source Bobby HerreraHEMOGLOBIN [id number] 00:00:00* Test Item Value Reference Range Interpretation Comme nts HEMOGLOBIN A1c (test code = 4548-4) 11.2 %oftotalHgb Bobby Garcia JavierLIPID [id number] 00:00:00* Test Item Value Reference Range Interpretation Comme nts CHOLESTEROL, TOTAL (test cod e = 2093-3) 136 mg/dL HDL CHOLESTEROL (test code = 2085-9) 48 mg/dL TRIGLYCERIDES (test code = 2571-8) 186 mg/dL LDL-CHOLESTEROL (test code = 57618-2) 63 mg/dL(calc) CHOL/HDLC RATIO (test code = 9830-1) 2.8 (calc) NON HDL CHOLESTEROL (test co de = 43373-1) 88 mg/dL(calc) Bobby Garcia JavierMICROALBUMIN, RANDOM URINE (W/CREATININE)2024-07-06 00:00:00* Test Item Value Reference Range Interpretation Comme nts CREATININE, RANDOM URINE (te st code = 2161-8) 18 mg/dL ALBUMIN, URINE (test code = 05436-0) 0.3 mg/dL ALBUMIN/CREATININE RATIO, RA NDOM URINE (test code = 9318-7) 17 mg/gcreat Bobby Garcia JavierCBC (INCLUDES DIFF/PLT)2024-07-06 00:00:00* Test Item Value Reference Range Interpretation Comme nts WHITE BLOOD CELL COUNT (test code = 6690-2) 11.0 Thousand/uL RED BLOOD CELL COUNT (test code = 789-8) 4.23 Million/uL HEMOGLOBIN (test code = 718-7) 13.8 g/dL HEMATOCRIT (test code = 4544-3) 41.1 % MCV (test code = 787-2) 97.2 fL MCH (test code = 785-6) 32.6 pg MCHC (test code = 786-4) 33.6 g/dL RDW (test code = 788-0) 11.8 % PLATELET COUNT (test code = 777-3) 313 Thousand/uL MPV (test code = 776-5) 10.0 fL ABSOLUTE NEUTROPHILS (test code = 751-8) 7227 cells/uL ABSOLUTE BAND NEUTROPHILS (test code = 90143-8) DNR cells/uL ABSOLUTE METAMYELOCYTES (test code = 02684-4) DNR cells/uL ABSOLUTE MYELOCYTES (test code = 02130-8) DNR cells/uL ABSOLUTE PROMYELOCYTES (test code = 10985-1) DNR cells/uL ABSOLUTE LYMPHOCYTES (test code = 731-0) 2882 cells/uL ABSOLUTE MONOCYTES (test code = 742-7) 627 cells/uL ABSOLUTE EOSINOPHILS (test code = 711-2) 231 cells/uL ABSOLUTE BASOPHILS (test code = 704-7) 33 cells/uL ABSOLUTE BLASTS (test code = 12769-6) DNR cells/uL ABSOLUTE NUCLEATED RBC (test code = 08217-8) DNR cells/uL NEUTROPHILS (test code = 770-8) 65.7 % BAND NEUTROPHILS (test code = 764-1) DNR % METAMYELOCYTES (test code = 740-1) DNR % MYELOCYTES (test code = 749-2) DNR % PROMYELOCYTES (test code = 783-1) DNR % LYMPHOCYTES (test code = 736-9) 26.2 % REACTIVE LYMPHOCYTES (test code = 37871-3) DNR % MONOCYTES (test code = 5905-5) 5.7 % EOSINOPHILS (test code = 713-8) 2.1 % BASOPHILS (test code = 706-2) 0.3 % BLASTS (test code = 709-6) DNR % NUCLEATED RBC (test code = 37636-2) DNR /100WBC COMMENT(S) (test code = 8251-1) DNR Bobby Garcia [facility] with [id number] 17:29:01* Test Item Value Reference Range Interpretation Comme nts WBC (test code = 6690-2) 7.22 4.30-11.10 RBC (test code = 789-8) 3.64 3.93-5.25 L HGB (test code = 718-7) 12.1 g/dL 11.6-15.0 HCT (test code = 4544-3) 35.5 % 35.7-45.2 L MCV (test code = 787-2) 97.5 fL 80.6-95.5 H MCH (test code = 785-6) 33.2 pg 25.9-32.8 H MCHC (test code = 786-4) 34.1 g/dL 31.6-35.1 RDW-SD (test code = 96857-0) 43.0 fL 39.0-49.9 RDW-CV (test code = 788-0) 12.3 % 12.0-15.5 PLT (test code = 777-3) 259 166-358 MPV (test code = 70625-8) 10.6 fL 9.5-12.9 NRBC/100 WBC (test code = 9631659611) 0.0 0.0-10.0 NRBC x10^3 (test code = 0224365619) See_Comment [Automated messa ge] The system which generated this result transmitted reference range: 10*3/?L. The reference range was not used to interpret this result as normal/abnormal. GRAN MAT (NEUT) % (test code = 770-8) 65.3 % IMM GRAN % (test code = 5841922644) 0.60 % LYMPH % (test code = 736-9) 25.5 % MONO % (test code = 5905-5) 6.1 % EOS % (test code = 713-8) 1.9 % BASO % (test code = 706-2) 0.6 % GRAN MAT x10^3(ANC) (test code = 8041641439) 4.72 10*3/uL 1.88-7.09 IMM GRAN x10^3 (test code = 5277701598) 0.04 10*3/uL 0.00-0.06 LYMPH x10^3 (test code = 731-0) 1.84 10*3/uL 1.32-3.29 MONO x10^3 (test code = 742-7) 0.44 10*3/uL 0.33-0.92 EOS x10^3 (test code = 711-2) 0.14 10*3/uL 0.03-0.39 BASO x10^3 (test code = 704-7) 0.04 10*3/uL 0.01-0.07 Lab Interpretation (test code = 38010-9) Abnormal [facility] [id number] 18:15:00* Test Item Value Reference Range Interpretation Comme nts POCT PREG (test code = 1605) Negative On board controls acceptable with C Line (test code = 3574) Yes POCT PREG LOT # (test code = 3575) POCT PREG TEST DATE ( test code = 3576) [facility] GLUCOSE (AUTOMATED)2023-09-18 11:55:04* Test Item Value Reference Range Interpretation Comme nts POCT GLU (test code = 8873411776) 171 mg/dL 70-110 H Lab Interpretation (test cod e = 36313-2) Abnormal [facility] GLUCOSE (AUTOMATED)2023-09-18 11:55:04* Test Item Value Reference Range Interpretation Comme nts POCT GLU (test code = 5866464979) 171 mg/dL 70-110 H Lab Interpretation (test cod e = 91044-0) Abnormal [facility] Hemoglobin A1C [id number] 17:25:00* Test Item Value Reference Range Interpretation Comme nts POCT HBA1C (test code = 4548-4) 10.3 % 4-6 A Lab Interpretation (test cod e = 57164-0) Abnormal [facility] Hemoglobin A1C [id number] 17:25:00* Test Item Value Reference Range Interpretation Comme nts POCT HBA1C (test code = 4548-4) 10.3 % 4-6 A Lab Interpretation (test cod e = 72992-5) Abnormal [facility] Hemoglobin A1C [id number] 17:25:00* Test Item Value Reference Range Interpretation Comme nts POCT HBA1C (test code = 4548-4) 10.3 % 4-6 A Lab Interpretation (test cod e = 55762-5) Abnormal [facility]- US PELVIS [id number] 11:11:00Patient Name: BELA TILLEY Unit No: [id number] EXAMS: CPT CODE: [id number] US PELVIS COMPLETE 17040 Exam: Pelvic ultrasound. Exam date: January 27, 2020 COMPARISON: None. CLINICAL HISTORY: Fibroids.Real-time transabdominal and transvaginal imaging with color and Spectral doppler of the pelvis demonstrates a 10.1 x 6.7 x 5.8 cm uterus. The following fibroids are seen: Fundal right subserosal 7.4x 5.8 x 6.7 cm Right anterior intramural/subserosal 3.0 x 1.5 x 2.5 cm Posterior intramural 1.9 x 1.6 x 1.8 cm Left posterior intramural/subserosal 3.7 x 3.5 x 3.9 cm Left posterior intramural 2.0 x 1.7 x 1.9 cm Right anterior intramural/subserosal 2.0 x 2.0 x 1.8 cm Right anterior intramural 1.6 x0.8 x 1.3 cm. The endometrium measures 0.4 cm . The right ovary measures 2.1 x 1.4 x 1.4 cm and hasa normal sonographic appearance. Blood flow is identified within the ovaries.. What is thought to represent the left ovary measures 2.4 x 2.1 x 1.6 cm and has a normal sonographic appearance. Blood flow was seen within the ovary.. There is a right paratubal cyst measuring 0.7 x 0.5 x 0.5 cm IMPRESSION: 1. Uterine leiomyomas , as detailed above. at 1111 Reported and signed by: Elmira Palmer MD CC: Technologist: Sebas Jackman RDMS, RVT Probe: Trnscrbd D/ (1111) [email or web address].[email or web address] Orig Print D/T: S: 01/27/2020 (1115) [facility] NAME: BELA TILLEY Radiology Department PHYS: Janine Zapata [address] : 1965 AGE: 54 SEX: F [place] [address] LOC: [facility] PHONE #: [phone] EXAM DATE: 01/27/2020 STATUS: REG CLI FAX #: [phone] RAD NO: Page 1 Signed Report Patient Name: BELA TILLEY Unit No: [id number] EXAMS: CPT CODE: [id number] US PELVIS COMPLETE 56630 <Continued> [facility] NAME: BELA TILLEY Radiology Department PHYS: Janine Zapata [address] : 1965 AGE: 54 SEX: F [place], [place] [address] LOC: [facility] PHONE #: [phone] EXAM DATE: 01/27/2020 STATUS: REG CLI FAX #: [phone] RAD NO: Page 2 Signed Report- US TRANSVAGINAL [id number] 11:11:00Patient Name: BELA TILLEY Unit No: [id number] EXAMS: CPT CODE: [id number] US TRANSVAGINAL W/PELVIS 49056 Exam: Pelvic ultrasound. Exam date: January 27, 2020 COMPARISON: None. CLINICAL HISTORY: Fibroids. Real-time transabdominal and transvaginal imaging with color and Spectral doppler of the pelvis demonstrates a 10.1 x 6.7 x 5.8 cm uterus. The following fibroids are seen: Fundal right subserosal 7.4 x 5.8 x 6.7 cm Right anterior intramural/subserosal 3.0 x 1.5 x 2.5 cm Posterior intramural 1.9 x 1.6 x 1.8 cm Left posterior intramural/subserosal 3.7 x 3.5 x 3.9 cm Left posterior intramural 2.0 x 1.7 x 1.9 cm Right anterior intramural/subserosal 2.0 x 2.0 x 1.8 cm Right anterior intramural1.6 x 0.8 x 1.3 cm. The endometrium measures 0.4 cm . The right ovary measures 2.1 x 1.4 x 1.4 cm and has a normal sonographic appearance. Blood flow is identified within the ovaries.. What is thought to represent the left ovary measures 2.4 x 2.1 x 1.6 cm and has a normal sonographic appearance. Blood flow was seen within the ovary.. There is a right paratubal cyst measuring 0.7 x 0.5 x 0.5 cm IMPRESSION: 1. Uterine leiomyomas , as detailed above. Electronically Signed by Elmira Mclain 01/27/2020 at 1111 Reported and signed by: Elmira Palmer MD CC: Technologist: Sebas Jackman RDMS, RVT Probe: [id number] Trnscrbd D/ (1111) t.UZMARJacklynCER Orig Print D/T: S: 01/27/2020 (1115) [facility] NAME: BELA TILLEY Radiology Department PHYS[facility] [address] : 1965 AGE: 54 SEX: F [place] [address] LOC: F.RAD PHONE #: [phone] EXAM DATE: 01/27/2020 STATUS: REG CLI FAX #: [phone] RAD NO: Page 1 Signed Report Patient Name: BELA TILLEY Unit No: [id number] EXAMS: CPT CODE: [id number] TRANSVAGINAL W/PELVIS 63214 <Continued> [facility] NAME: BELA TILLEY Radiology Department PHYS: EDUARDA Janine Gonzalez [address] : 1965 AGE: 54SEX: F [place] [address] LOC: F.RAD PHONE #: [phone] EXAM DATE: 01/27/2020 STATUS: REG CLI FAX #: [phone] RAD NO: Page 2 Signed Report- DUP AB/PEL/SC/[id number] 11:11:00Patient Name: BELA TILLEY Unit No: [id number] EXAMS: CPT CODE: [id number] DUP AB/PEL/SC/LTD 81990 Exam: Pelvic ultrasound. Exam date: January 27, 2020 COMPARISON: None. CLINICAL HISTORY: Fibroids.Real-time transabdominal and transvaginal imaging with color and Spectral doppler of the pelvis demonstrates a 10.1 x 6.7 x 5.8 cm uterus. The following fibroids are seen: Fundal right subserosal 7.4x 5.8 x 6.7 cm Right anterior intramural/subserosal 3.0 x 1.5 x 2.5 cm Posterior intramural 1.9 x 1.6 x 1.8 cm Left posterior intramural/subserosal 3.7 x 3.5 x 3.9 cm Left posterior intramural 2.0 x 1.7 x 1.9 cm Right anterior intramural/subserosal 2.0 x 2.0 x 1.8 cm Right anterior intramural 1.6 x0.8 x 1.3 cm. The endometrium measures 0.4 cm . The right ovary measures 2.1 x 1.4 x 1.4 cm and hasa normal sonographic appearance. Blood flow is identified within the ovaries.. What is thought to represent the left ovary measures 2.4 x 2.1 x 1.6 cm and has a normal sonographic appearance. Blood flow was seen within the ovary.. There is a right paratubal cyst measuring 0.7 x 0.5 x 0.5 cm IMPRESSION: 1. Uterine leiomyomas , as detailed above. at 1111 Reported and signed by: Elmira Palmer MD CC: Technologist: Sebas Jackman RDMS, RVT Probe: Trnscrbd D/ (1111) [email or web address] Orig Print D/T: S: 01/27/2020 (1115) [facility] NAME: BELA TILLEY Radiology Department PHYS: Janine Zapata [address] : 1965 AGE: 54 SEX: F [place], [place] [address] LOC: F.RAD PHONE #: [phone] EXAM DATE: 01/27/2020 STATUS: REG CLI FAX #: [phone] RAD NO: Page 1 Signed Report Patient Name: BELA TILLEY Unit No: [id number] EXAMS: CPT CODE: [id number] DUP AB/PEL/SC/LTD 13770 <Continued> [facility] NAME: BELA TILLEY Radiology Department PHYS: Janine Zapata [address] : 1965 AGE: 54 SEX: F [place] LOC: F.RAD PHONE #: [phone] EXAM DATE: 01/27/2020 STATUS: REG [place] #: [phone] RAD NO: Page 2 Signed ReportCOMPREHENSIVE METABOLIC PANEL [ADDED]2019-06-08 00:00:00* Test Item Value Reference Range Interpretation Comme nts GLUCOSE (test code = 2217) 137 MG/DL BUN (test code = 2208) 16 MG/DL CREATININE (test code = 2214) 0.87 MG/DL eGFR AMER. (test cod e = 30146) 89 ML/MIN/1.73 eGFR NON- AMER. (test code = 20627) 77 ML/MIN/1.73 CALC BUN/CREAT (test code = 2235) 18 RATIO SODIUM (test code = 2231) 143 MEQ/L POTASSIUM (test code = 2228) 4.3 MEQ/L CHLORIDE (test code = 2215) 107 MEQ/L CARBON DIOXIDE (test code = 2206) 22 MEQ/L CALCIUM (test code = 2209) 10.3 MG/DL PROTEIN, TOTAL (test code = 2229) 7.9 G/DL ALBUMIN (test code = 2201) 4.5 G/DL CALC GLOBULIN (test code = 2240) 3.4 G/DL CALC A/G RATIO (test code = 2234) 1.3 RATIO BILIRUBIN, TOTAL (test code = 2207) 0.3 MG/DL ALKALINE PHOSPHATASE (test code = 2204) 175 U/L AST (test code = 2218) 16 U/L ALT (test code = 2219) 18 U/L Bobby HerreraCOMPREHENSIVE METABOLIC PANEL [ADDED]2019-06-08 00:00:00* Test Item Value Reference Range Interpretation Comme nts GLUCOSE (test code = 2217) 137 MG/DL BUN (test code = 2208) 16 MG/DL CREATININE (test code = 2214) 0.87 MG/DL eGFR AMER. (test cod e = 26010) 89 ML/MIN/1.73 eGFR NON- AMER. (test code = 29345) 77 ML/MIN/1.73 CALC BUN/CREAT (test code = 2235) 18 RATIO SODIUM (test code = 2231) 143 MEQ/L POTASSIUM (test code = 2228) 4.3 MEQ/L CHLORIDE (test code = 2215) 107 MEQ/L CARBON DIOXIDE (test code = 2206) 22 MEQ/L CALCIUM (test code = 2209) 10.3 MG/DL PROTEIN, TOTAL (test code = 2229) 7.9 G/DL ALBUMIN (test code = 2201) 4.5 G/DL CALC GLOBULIN (test code = 2240) 3.4 G/DL CALC A/G RATIO (test code = 2234) 1.3 RATIO BILIRUBIN, TOTAL (test code = 2207) 0.3 MG/DL ALKALINE PHOSPHATASE (test code = 2204) 175 U/L AST (test code = 2218) 16 U/L ALT (test code = 2219) 18 U/L Bobby HerreraCOMPREHENSIVE METABOLIC PANEL [ADDED]2019-06-08 00:00:00* Test Item Value Reference Range Interpretation Comme nts GLUCOSE (test code = 2217) 137 MG/DL BUN (test code = 2208) 16 MG/DL CREATININE (test code = 2214) 0.87 MG/DL eGFR AMER. (test cod e = 42647) 89 ML/MIN/1.73 eGFR NON- AMER. (test code = 77222) 77 ML/MIN/1.73 CALC BUN/CREAT (test code = 2235) 18 RATIO SODIUM (test code = 2231) 143 MEQ/L POTASSIUM (test code = 2228) 4.3 MEQ/L CHLORIDE (test code = 2215) 107 MEQ/L CARBON DIOXIDE (test code = 2206) 22 MEQ/L CALCIUM (test code = 2209) 10.3 MG/DL PROTEIN, TOTAL (test code = 2229) 7.9 G/DL ALBUMIN (test code = 2201) 4.5 G/DL CALC GLOBULIN (test code = 2240) 3.4 G/DL CALC A/G RATIO (test code = 2234) 1.3 RATIO BILIRUBIN, TOTAL (test code = 2207) 0.3 MG/DL ALKALINE PHOSPHATASE (test code = 2204) 175 U/L AST (test code = 2218) 16 U/L ALT (test code = 2219) 18 U/L Bobby F West EatonCOMPREHENSIVE METABOLIC PANEL [ADDED]2019-06-08 00:00:00* Test Item Value Reference Range Interpretation Comme nts GLUCOSE (test code = 2217) 137 MG/DL BUN (test code = 2208) 16 MG/DL CREATININE (test code = 2214) 0.87 MG/DL eGFR AMER. (test cod e = 05306) 89 ML/MIN/1.73 eGFR NON- AMER. (test code = 41736) 77 ML/MIN/1.73 CALC BUN/CREAT (test code = 2235) 18 RATIO SODIUM (test code = 2231) 143 MEQ/L POTASSIUM (test code = 2228) 4.3 MEQ/L CHLORIDE (test code = 2215) 107 MEQ/L CARBON DIOXIDE (test code = 2206) 22 MEQ/L CALCIUM (test code = 2209) 10.3 MG/DL PROTEIN, TOTAL (test code = 2229) 7.9 G/DL ALBUMIN (test code = 2201) 4.5 G/DL CALC GLOBULIN (test code = 2240) 3.4 G/DL CALC A/G RATIO (test code = 2234) 1.3 RATIO BILIRUBIN, TOTAL (test code = 2207) 0.3 MG/DL ALKALINE PHOSPHATASE (test code = 2204) 175 U/L AST (test code = 2218) 16 U/L ALT (test code = 2219) 18 U/L Bobby F West EatonCOMPREHENSIVE METABOLIC PANEL [ADDED]2019-06-08 00:00:00* Test Item Value Reference Range Interpretation Comme nts GLUCOSE (test code = 2217) 137 MG/DL BUN (test code = 2208) 16 MG/DL CREATININE (test code = 2214) 0.87 MG/DL eGFR AMER. (test cod e = 95403) 89 ML/MIN/1.73 eGFR NON- AMER. (test code = 42747) 77 ML/MIN/1.73 CALC BUN/CREAT (test code = 2235) 18 RATIO SODIUM (test code = 2231) 143 MEQ/L POTASSIUM (test code = 2228) 4.3 MEQ/L CHLORIDE (test code = 2215) 107 MEQ/L CARBON DIOXIDE (test code = 2206) 22 MEQ/L CALCIUM (test code = 2209) 10.3 MG/DL PROTEIN, TOTAL (test code = 2229) 7.9 G/DL ALBUMIN (test code = 2201) 4.5 G/DL CALC GLOBULIN (test code = 2240) 3.4 G/DL CALC A/G RATIO (test code = 2234) 1.3 RATIO BILIRUBIN, TOTAL (test code = 2207) 0.3 MG/DL ALKALINE PHOSPHATASE (test code = 2204) 175 U/L AST (test code = 2218) 16 U/L ALT (test code = 2219) 18 U/L Bobby HerreraLIPID PANEL [ADDED]2019-06-01 00:00:00* Test Item Value Reference Range Interpretation Comme nts CHOLESTEROL (test code = 2210) 149 MG/DL TRIGLYCERIDES (test code = 2232) 162 MG/DL HDL CHOLESTEROL (test code = 2220) 44 MG/DL CALC LDL CHOL (test code = 2237) 73 MG/DL RISK RATIO LDL/HDL (test cod e = 2238) 1.65 RATIO Bobby HerreraCBC W/AUTO DIFF WITH PLATELETS [ADDED]2019-06-01 00:00:00* Test Item Value Reference Range Interpretation Comme nts WBC (test code = 1001) 9.0 K/UL RBC (test code = 1002) 3.98 M/UL HEMOGLOBIN (test code = 1003) 13.1 G/DL HEMATOCRIT (test code = 1004) 38.0 % MCV (test code = 1005) 95.5 fL MCH (test code = 1006) 32.9 PG MCHC (test code = 1007) 34.5 G/DL RDW (test code = 1038) 12.1 % NEUTROPHILS (test code = 1008) 66.1 % LYMPHOCYTES (test code = 1010) 24.3 % MONOCYTES (test code = 1011) 7.9 % EOSINOPHILS (test code = 1012) 1.3 % BASOPHILS (test code = 1013) 0.4 % PLATELET COUNT (test code = 1015) 276 K/UL Bobby HerreraHEMOGLOBIN A1c [ADDED]2019-06-01 00:00:00* Test Item Value Reference Range Interpretation Comme nts HEMOGLOBIN A1c (test code = 39916) 6.7 % Bobby HerreraLIPID PANEL [ADDED]2019-06-01 00:00:00* Test Item Value Reference Range Interpretation Comme nts CHOLESTEROL (test code = 2210) 149 MG/DL TRIGLYCERIDES (test code = 2232) 162 MG/DL HDL CHOLESTEROL (test code = 2220) 44 MG/DL CALC LDL CHOL (test code = 2237) 73 MG/DL RISK RATIO LDL/HDL (test cod e = 2238) 1.65 RATIO Bobby HerreraCBC W/AUTO DIFF WITH PLATELETS [ADDED]2019-06-01 00:00:00* Test Item Value Reference Range Interpretation Comme nts WBC (test code = 1001) 9.0 K/UL RBC (test code = 1002) 3.98 M/UL HEMOGLOBIN (test code = 1003) 13.1 G/DL HEMATOCRIT (test code = 1004) 38.0 % MCV (test code = 1005) 95.5 fL MCH (test code = 1006) 32.9 PG MCHC (test code = 1007) 34.5 G/DL RDW (test code = 1038) 12.1 % NEUTROPHILS (test code = 1008) 66.1 % LYMPHOCYTES (test code = 1010) 24.3 % MONOCYTES (test code = 1011) 7.9 % EOSINOPHILS (test code = 1012) 1.3 % BASOPHILS (test code = 1013) 0.4 % PLATELET COUNT (test code = 1015) 276 K/UL Bobby HerreraHEMOGLOBIN A1c [ADDED]2019-06-01 00:00:00* Test Item Value Reference Range Interpretation Comme nts HEMOGLOBIN A1c (test code = 47543) 6.7 % Bobby Garcia AustinLIPID PANEL [ADDED]2019-06-01 00:00:00* Test Item Value Reference Range Interpretation Comme nts CHOLESTEROL (test code = 2210) 149 MG/DL TRIGLYCERIDES (test code = 2232) 162 MG/DL HDL CHOLESTEROL (test code = 2220) 44 MG/DL CALC LDL CHOL (test code = 2237) 73 MG/DL RISK RATIO LDL/HDL (test cod e = 2238) 1.65 RATIO Bobby Garcia AustinCBC W/AUTO DIFF WITH PLATELETS [ADDED]2019-06-01 00:00:00* Test Item Value Reference Range Interpretation Comme nts WBC (test code = 1001) 9.0 K/UL RBC (test code = 1002) 3.98 M/UL HEMOGLOBIN (test code = 1003) 13.1 G/DL HEMATOCRIT (test code = 1004) 38.0 % MCV (test code = 1005) 95.5 fL MCH (test code = 1006) 32.9 PG MCHC (test code = 1007) 34.5 G/DL RDW (test code = 1038) 12.1 % NEUTROPHILS (test code = 1008) 66.1 % LYMPHOCYTES (test code = 1010) 24.3 % MONOCYTES (test code = 1011) 7.9 % EOSINOPHILS (test code = 1012) 1.3 % BASOPHILS (test code = 1013) 0.4 % PLATELET COUNT (test code = 1015) 276 K/UL Bobby HerreraHEMOGLOBIN A1c [ADDED]2019-06-01 00:00:00* Test Item Value Reference Range Interpretation Comme nts HEMOGLOBIN A1c (test code = 46851) 6.7 % Bobby HerreraLIPID PANEL [ADDED]2019-06-01 00:00:00* Test Item Value Reference Range Interpretation Comme nts CHOLESTEROL (test code = 2210) 149 MG/DL TRIGLYCERIDES (test code = 2232) 162 MG/DL HDL CHOLESTEROL (test code = 2220) 44 MG/DL CALC LDL CHOL (test code = 2237) 73 MG/DL RISK RATIO LDL/HDL (test cod e = 2238) 1.65 RATIO Bobby HerreraCBC W/AUTO DIFF WITH PLATELETS [ADDED]2019-06-01 00:00:00* Test Item Value Reference Range Interpretation Comme nts WBC (test code = 1001) 9.0 K/UL RBC (test code = 1002) 3.98 M/UL HEMOGLOBIN (test code = 1003) 13.1 G/DL HEMATOCRIT (test code = 1004) 38.0 % MCV (test code = 1005) 95.5 fL MCH (test code = 1006) 32.9 PG MCHC (test code = 1007) 34.5 G/DL RDW (test code = 1038) 12.1 % NEUTROPHILS (test code = 1008) 66.1 % LYMPHOCYTES (test code = 1010) 24.3 % MONOCYTES (test code = 1011) 7.9 % EOSINOPHILS (test code = 1012) 1.3 % BASOPHILS (test code = 1013) 0.4 % PLATELET COUNT (test code = 1015) 276 K/UL Bobby HerreraHEMOGLOBIN A1c [ADDED]2019-06-01 00:00:00* Test Item Value Reference Range Interpretation Comme nts HEMOGLOBIN A1c (test code = 99348) 6.7 % Bobby HerreraLIPID PANEL [ADDED]2019-06-01 00:00:00* Test Item Value Reference Range Interpretation Comme nts CHOLESTEROL (test code = 2210) 149 MG/DL TRIGLYCERIDES (test code = 2232) 162 MG/DL HDL CHOLESTEROL (test code = 2220) 44 MG/DL CALC LDL CHOL (test code = 2237) 73 MG/DL RISK RATIO LDL/HDL (test cod e = 2238) 1.65 RATIO Bobby HerreraCBC W/AUTO DIFF WITH PLATELETS [ADDED]2019-06-01 00:00:00* Test Item Value Reference Range Interpretation Comme nts WBC (test code = 1001) 9.0 K/UL RBC (test code = 1002) 3.98 M/UL HEMOGLOBIN (test code = 1003) 13.1 G/DL HEMATOCRIT (test code = 1004) 38.0 % MCV (test code = 1005) 95.5 fL MCH (test code = 1006) 32.9 PG MCHC (test code = 1007) 34.5 G/DL RDW (test code = 1038) 12.1 % NEUTROPHILS (test code = 1008) 66.1 % LYMPHOCYTES (test code = 1010) 24.3 % MONOCYTES (test code = 1011) 7.9 % EOSINOPHILS (test code = 1012) 1.3 % BASOPHILS (test code = 1013) 0.4 % PLATELET COUNT (test code = 1015) 276 K/UL Bobby HerreraHEMOGLOBIN A1c [ADDED]2019-06-01 00:00:00* Test Item Value Reference Range Interpretation Comme nts HEMOGLOBIN A1c (test code = 91607) 6.7 % Bobby Garcia Javier- CT HEAD/BRAIN W/O [id number] 20:12:00Patient Name: BELA TILLEY Unit No: [id number] EXAMS: CPT: [id number] CT HEAD/BRAIN W/O CONT [id number] CT OF THE HEAD WITHOUT CONTRAST: HISTORY: Trauma, laceration. Comparison: No previous pertinent examination is available. Technique: Axial images through the head was performed without intravenouscontrast. Coronal sagittal reconstructed images were obtained. CT radiation dose optimization is achieved for this examination by the use of a CT protocol in accordance with ACR practice standards and adherence to manufacturers recommendations One or more of the following dose reduction techniques were used: Automated exposure control, adjustment of the mA and/or KV according to patient size, and/or utilization of iterative reconstruction technique. DLP : 835 mGy cm FINDINGS: Ventricles and sulci are normal in size an shape. No acute infarct or hemorrhage is noted. No mass-effect or midline shift is seen. The ventricular system and subarachnoid spaces appear normal. The calvarium is unremarkable. The soft tissues and orbits show no significant abnormality. The visualized portions of theparanasal sinuses and mastoid air cells are clear. IMPRESSION: No acute intracranial abnormality isdetected. at 2012 Reported and signed by: Guido Berkowitz MD Name: BELA TILLEY [facility] Phys: Toni Brandt DO [address] [facility] : 1965 Age: 53 Sex: F [place] [id number] Loc: N.ERS Exam Date: 03/16/2019 Status: PRE ER PH: FAX: PAGE 1 Signed Report (CONTINUED) Patient Name: BELA TILLEY Unit No: [id number] EXAMS: CPT: [id number] CT HEAD/BRAIN W/O CONT [id number] (Continued) CC: Technologist: CATY Oconnell CTDI: 51.34 DLP: 831.79 Trscr Dt/Tm: 03/16/2019 (2011) by:[email or web address] Orig Print D/T: S:03/16/2019 (2014) BATCH NO: N/A Name: BELA TILLEY [facility] Phys: TAMIKO VermaEnrique garsiaor B DO [address] [facility] : 1965 Age: 53 Sex: F [place] [phone] Loc: N.ERS Exam Date: 03/16/2019 Status: PRE ER PH: FAX: PAGE 2 Signed ReportCOMPREHENSIVE METABOLIC PANEL 2018-07-03 00:00:00* Test Item Value Reference Range Interpretation Comme nts GLUCOSE (test code = 2217) 108 MG/DL BUN (test code = 2208) 21 MG/DL CREATININE (test code = 2214) 1.01 MG/DL eGFR AMER. (test cod e = 86037) 75 ML/MIN/1.73 eGFR NON- AMER. (test code = 31696) 64 ML/MIN/1.73 CALC BUN/CREAT (test code = 2235) 21 RATIO SODIUM (test code = 2231) 143 MEQ/L POTASSIUM (test code = 2228) 3.6 MEQ/L CHLORIDE (test code = 2215) 102 MEQ/L CARBON DIOXIDE (test code = 2206) 21 MEQ/L CALCIUM (test code = 2209) 10.8 MG/DL PROTEIN, TOTAL (test code = 2229) 7.9 G/DL ALBUMIN (test code = 2201) 4.4 G/DL CALC GLOBULIN (test code = 2240) 3.5 G/DL CALC A/G RATIO (test code = 2234) 1.3 RATIO BILIRUBIN, TOTAL (test code = 2207) <0.2 MG/DL ALKALINE PHOSPHATASE (test code = 2204) 155 U/L AST (test code = 2218) 16 U/L ALT (test code = 2219) 15 U/L Bobby Garcia West EatonCOMPREHENSIVE METABOLIC [id number] 00:00:00* Test Item Value Reference Range Interpretation Comme nts GLUCOSE (test code = 2217) 108 MG/DL BUN (test code = 2208) 21 MG/DL CREATININE (test code = 2214) 1.01 MG/DL eGFR AMER. (test cod e = 69935) 75 ML/MIN/1.73 eGFR NON- AMER. (test code = 23700) 64 ML/MIN/1.73 CALC BUN/CREAT (test code = 2235) 21 RATIO SODIUM (test code = 2231) 143 MEQ/L POTASSIUM (test code = 2228) 3.6 MEQ/L CHLORIDE (test code = 2215) 102 MEQ/L CARBON DIOXIDE (test code = 2206) 21 MEQ/L CALCIUM (test code = 2209) 10.8 MG/DL PROTEIN, TOTAL (test code = 2229) 7.9 G/DL ALBUMIN (test code = 2201) 4.4 G/DL CALC GLOBULIN (test code = 2240) 3.5 G/DL CALC A/G RATIO (test code = 2234) 1.3 RATIO BILIRUBIN, TOTAL (test code = 2207) <0.2 MG/DL ALKALINE PHOSPHATASE (test code = 2204) 155 U/L AST (test code = 2218) 16 U/L ALT (test code = 2219) 15 U/L Bobby F AustinCOMPREHENSIVE METABOLIC [id number] 00:00:00* Test Item Value Reference Range Interpretation Comme nts GLUCOSE (test code = 2217) 108 MG/DL BUN (test code = 2208) 21 MG/DL CREATININE (test code = 2214) 1.01 MG/DL eGFR AMER. (test cod e = 38867) 75 ML/MIN/1.73 eGFR NON- AMER. (test code = 19296) 64 ML/MIN/1.73 CALC BUN/CREAT (test code = 2235) 21 RATIO SODIUM (test code = 2231) 143 MEQ/L POTASSIUM (test code = 2228) 3.6 MEQ/L CHLORIDE (test code = 2215) 102 MEQ/L CARBON DIOXIDE (test code = 2206) 21 MEQ/L CALCIUM (test code = 2209) 10.8 MG/DL PROTEIN, TOTAL (test code = 2229) 7.9 G/DL ALBUMIN (test code = 2201) 4.4 G/DL CALC GLOBULIN (test code = 2240) 3.5 G/DL CALC A/G RATIO (test code = 2234) 1.3 RATIO BILIRUBIN, TOTAL (test code = 2207) <0.2 MG/DL ALKALINE PHOSPHATASE (test code = 2204) 155 U/L AST (test code = 2218) 16 U/L ALT (test code = 2219) 15 U/L Bobby F AustinCOMPREHENSIVE METABOLIC [id number] 00:00:00* Test Item Value Reference Range Interpretation Comme nts GLUCOSE (test code = 2217) 108 MG/DL BUN (test code = 2208) 21 MG/DL CREATININE (test code = 2214) 1.01 MG/DL eGFR AMER. (test cod e = 05206) 75 ML/MIN/1.73 eGFR NON- AMER. (test code = 43092) 64 ML/MIN/1.73 CALC BUN/CREAT (test code = 2235) 21 RATIO SODIUM (test code = 2231) 143 MEQ/L POTASSIUM (test code = 2228) 3.6 MEQ/L CHLORIDE (test code = 2215) 102 MEQ/L CARBON DIOXIDE (test code = 2206) 21 MEQ/L CALCIUM (test code = 2209) 10.8 MG/DL PROTEIN, TOTAL (test code = 2229) 7.9 G/DL ALBUMIN (test code = 2201) 4.4 G/DL CALC GLOBULIN (test code = 2240) 3.5 G/DL CALC A/G RATIO (test code = 2234) 1.3 RATIO BILIRUBIN, TOTAL (test code = 2207) <0.2 MG/DL ALKALINE PHOSPHATASE (test code = 2204) 155 U/L AST (test code = 2218) 16 U/L ALT (test code = 2219) 15 U/L Bobby Radha JavierCOMPREHENSIVE METABOLIC [id number] 00:00:00* Test Item Value Reference Range Interpretation Comme nts GLUCOSE (test code = 2217) 108 MG/DL BUN (test code = 2208) 21 MG/DL CREATININE (test code = 2214) 1.01 MG/DL eGFR AMER. (test cod e = 29521) 75 ML/MIN/1.73 eGFR NON- AMER. (test code = 61246) 64 ML/MIN/1.73 CALC BUN/CREAT (test code = 2235) 21 RATIO SODIUM (test code = 2231) 143 MEQ/L POTASSIUM (test code = 2228) 3.6 MEQ/L CHLORIDE (test code = 2215) 102 MEQ/L CARBON DIOXIDE (test code = 2206) 21 MEQ/L CALCIUM (test code = 2209) 10.8 MG/DL PROTEIN, TOTAL (test code = 2229) 7.9 G/DL ALBUMIN (test code = 2201) 4.4 G/DL CALC GLOBULIN (test code = 2240) 3.5 G/DL CALC A/G RATIO (test code = 2234) 1.3 RATIO BILIRUBIN, TOTAL (test code = 2207) <0.2 MG/DL ALKALINE PHOSPHATASE (test code = 2204) 155 U/L AST (test code = 2218) 16 U/L ALT (test code = 2219) 15 U/L Bobby Garcia AustinMICROALBUMIN/CREATININE, RANDOM AND [id number] 00:00:00* Test Item Value Reference Range Interpretation Comme nts CREATININE, URINE, CONC. (te st code = 2071) 125.4 MG/DL ALBUMIN, URINE, RANDOM (test code = 96684) 11.1 MG/DL CALC ALBUMIN/CREAT, RND (mickie t code = 10634) 89 MG/G Bobby Garcia AustinMICROALBUMIN/CREATININE, RANDOM AND [id number] 00:00:00* Test Item Value Reference Range Interpretation Comme nts CREATININE, URINE, CONC. (te st code = 2071) 125.4 MG/DL ALBUMIN, URINE, RANDOM (test code = 56734) 11.1 MG/DL CALC ALBUMIN/CREAT, RND (mickie t code = 61309) 89 MG/G Bobby Garcia AustinMICROALBUMIN/CREATININE, RANDOM AND [id number] 00:00:00* Test Item Value Reference Range Interpretation Comme nts CREATININE, URINE, CONC. (te st code = 2071) 125.4 MG/DL ALBUMIN, URINE, RANDOM (test code = 54750) 11.1 MG/DL CALC ALBUMIN/CREAT, RND (mickie t code = 84586) 89 MG/G Bobby Garcia AustinMICROALBUMIN/CREATININE, RANDOM AND [id number] 00:00:00* Test Item Value Reference Range Interpretation Comme nts CREATININE, URINE, CONC. (te st code = 2071) 125.4 MG/DL ALBUMIN, URINE, RANDOM (test code = 10314) 11.1 MG/DL CALC ALBUMIN/CREAT, RND (mickie t code = 36456) 89 MG/G Bobby Garcia AustinMICROALBUMIN/CREATININE, RANDOM AND [id number] 00:00:00* Test Item Value Reference Range Interpretation Comme nts CREATININE, URINE, CONC. (te st code = 2071) 125.4 MG/DL ALBUMIN, URINE, RANDOM (test code = 99568) 11.1 MG/DL CALC ALBUMIN/CREAT, RND (mickie t code = 16418) 89 MG/G Bobby F AustinMICROALBUMIN/CREATININE, RANDOM AND [id number] 00:00:00* Test Item Value Reference Range Interpretation Comme nts CREATININE, URINE, CONC. (test code = 2071) TEST NOT PERFORMED MG/DL ALBUMIN, URINE, RANDOM (test code = 70785) TEST NOT PERFORMED MG/DL CALC ALBUMIN/CREAT, RND (test code = 90415) TEST NOT PERFORMED MG/G Bobby F AustinMICROALBUMIN/CREATININE, RANDOM AND [id number] 00:00:00* Test Item Value Reference Range Interpretation Comme nts CREATININE, URINE, CONC. (test code = 2071) TEST NOT PERFORMED MG/DL ALBUMIN, URINE, RANDOM (test code = 39802) TEST NOT PERFORMED MG/DL CALC ALBUMIN/CREAT, RND (test code = 61953) TEST NOT PERFORMED MG/G Bobby F AustinMICROALBUMIN/CREATININE, RANDOM AND [id number] 00:00:00* Test Item Value Reference Range Interpretation Comme nts CREATININE, URINE, CONC. (test code = 2071) TEST NOT PERFORMED MG/DL ALBUMIN, URINE, RANDOM (test code = 61873) TEST NOT PERFORMED MG/DL CALC ALBUMIN/CREAT, RND (test code = 56756) TEST NOT PERFORMED MG/G Bobby F AustinMICROALBUMIN/CREATININE, RANDOM AND [id number] 00:00:00* Test Item Value Reference Range Interpretation Comme nts CREATININE, URINE, CONC. (test code = 2071) TEST NOT PERFORMED MG/DL ALBUMIN, URINE, RANDOM (test code = 63677) TEST NOT PERFORMED MG/DL CALC ALBUMIN/CREAT, RND (test code = 94905) TEST NOT PERFORMED MG/G Bobby F AustinMICROALBUMIN/CREATININE, RANDOM AND [id number] 00:00:00* Test Item Value Reference Range Interpretation Comme nts CREATININE, URINE, CONC. (test code = 2071) TEST NOT PERFORMED MG/DL ALBUMIN, URINE, RANDOM (test code = 40349) TEST NOT PERFORMED MG/DL CALC ALBUMIN/CREAT, RND (test code = 40174) TEST NOT PERFORMED MG/G Bobby F AustinCBC W/AUTO [id number] 00:00:00* Test Item Value Reference Range Interpretation Comme nts WBC (test code = 1001) 9.7 K/UL RBC (test code = 1002) 4.59 M/UL HEMOGLOBIN (test code = 1003) 15.0 G/DL HEMATOCRIT (test code = 1004) 43.0 % MCV (test code = 1005) 93.7 fL MCH (test code = 1006) 32.7 PG MCHC (test code = 1007) 34.9 G/DL RDW (test code = 1038) 12.8 % NEUTROPHILS (test code = 1008) 67.4 % LYMPHOCYTES (test code = 1010) 24.5 % MONOCYTES (test code = 1011) 6.2 % EOSINOPHILS (test code = 1012) 1.3 % BASOPHILS (test code = 1013) 0.6 % PLATELET COUNT (test code = 1015) 308 K/UL Bobby HerreraCOMPREHENSIVE METABOLIC [id number] 00:00:00* Test Item Value Reference Range Interpretation Comme nts GLUCOSE (test code = 2217) 177 MG/DL BUN (test code = 2208) 16 MG/DL CREATININE (test code = 2214) 0.78 MG/DL eGFR AMER. (test cod e = 48273) 102 ML/MIN/1.73 eGFR NON- AMER. (test code = 44346) 88 ML/MIN/1.73 CALC BUN/CREAT (test code = 2235) 21 RATIO SODIUM (test code = 2231) 142 MEQ/L POTASSIUM (test code = 2228) 3.8 MEQ/L CHLORIDE (test code = 2215) 103 MEQ/L CARBON DIOXIDE (test code = 2206) 24 MEQ/L CALCIUM (test code = 2209) 10.3 MG/DL PROTEIN, TOTAL (test code = 2229) 8.9 G/DL ALBUMIN (test code = 2201) 4.7 G/DL CALC GLOBULIN (test code = 2240) 4.2 G/DL CALC A/G RATIO (test code = 2234) 1.1 RATIO BILIRUBIN, TOTAL (test code = 2207) <0.2 MG/DL ALKALINE PHOSPHATASE (test code = 2204) 189 U/L AST (test code = 2218) 24 U/L ALT (test code = 2219) 40 U/L Bobby HerreraLIPID [id number] 00:00:00* Test Item Value Reference Range Interpretation Comme nts CHOLESTEROL (test code = 2210) 201 MG/DL TRIGLYCERIDES (test code = 2232) 123 MG/DL HDL CHOLESTEROL (test code = 2220) 54 MG/DL CALC LDL CHOL (test code = 2237) 122 MG/DL RISK RATIO LDL/HDL (test cod e = 2238) 2.27 RATIO Bobby [id number] 00:00:00* Test Item Value Reference Range Interpretation Comme liz TSH, THIRD GENERATION (test code = 2821) 1.670 UIU/ML Bobby HerreraHEMOGLOBIN [id number] 00:00:00* Test Item Value Reference Range Interpretation Comme nts HEMOGLOBIN A1c (test code = 40080) 11.5 % Bobby HerreraCBC W/AUTO [id number] 00:00:00* Test Item Value Reference Range Interpretation Comme nts WBC (test code = 1001) 9.7 K/UL RBC (test code = 1002) 4.59 M/UL HEMOGLOBIN (test code = 1003) 15.0 G/DL HEMATOCRIT (test code = 1004) 43.0 % MCV (test code = 1005) 93.7 fL MCH (test code = 1006) 32.7 PG MCHC (test code = 1007) 34.9 G/DL RDW (test code = 1038) 12.8 % NEUTROPHILS (test code = 1008) 67.4 % LYMPHOCYTES (test code = 1010) 24.5 % MONOCYTES (test code = 1011) 6.2 % EOSINOPHILS (test code = 1012) 1.3 % BASOPHILS (test code = 1013) 0.6 % PLATELET COUNT (test code = 1015) 308 K/UL Bobby HerreraCOMPREHENSIVE METABOLIC [id number] 00:00:00* Test Item Value Reference Range Interpretation Comme nts GLUCOSE (test code = 2217) 177 MG/DL BUN (test code = 2208) 16 MG/DL CREATININE (test code = 2214) 0.78 MG/DL eGFR AMER. (test cod e = 19188) 102 ML/MIN/1.73 eGFR NON- AMER. (test code = 86477) 88 ML/MIN/1.73 CALC BUN/CREAT (test code = 2235) 21 RATIO SODIUM (test code = 2231) 142 MEQ/L POTASSIUM (test code = 2228) 3.8 MEQ/L CHLORIDE (test code = 2215) 103 MEQ/L CARBON DIOXIDE (test code = 2206) 24 MEQ/L CALCIUM (test code = 2209) 10.3 MG/DL PROTEIN, TOTAL (test code = 2229) 8.9 G/DL ALBUMIN (test code = 2201) 4.7 G/DL CALC GLOBULIN (test code = 2240) 4.2 G/DL CALC A/G RATIO (test code = 2234) 1.1 RATIO BILIRUBIN, TOTAL (test code = 2207) <0.2 MG/DL ALKALINE PHOSPHATASE (test code = 2204) 189 U/L AST (test code = 2218) 24 U/L ALT (test code = 2219) 40 U/L Bobby HerreraLIPID [id number] 00:00:00* Test Item Value Reference Range Interpretation Comme nts CHOLESTEROL (test code = 2210) 201 MG/DL TRIGLYCERIDES (test code = 2232) 123 MG/DL HDL CHOLESTEROL (test code = 2220) 54 MG/DL CALC LDL CHOL (test code = 2237) 122 MG/DL RISK RATIO LDL/HDL (test cod e = 2238) 2.27 RATIO Bobby [id number] 00:00:00* Test Item Value Reference Range Interpretation Comme [facility] TSH, THIRD GENERATION (test code = 2821) 1.670 UIU/ML Bobby HerreraHEMOGLOBIN [id number] 00:00:00* Test Item Value Reference Range Interpretation Comme nts HEMOGLOBIN A1c (test code = 45467) 11.5 % Bobby HerreraCBC W/AUTO [id number] 00:00:00* Test Item Value Reference Range Interpretation Comme nts WBC (test code = 1001) 9.7 K/UL RBC (test code = 1002) 4.59 M/UL HEMOGLOBIN (test code = 1003) 15.0 G/DL HEMATOCRIT (test code = 1004) 43.0 % MCV (test code = 1005) 93.7 fL MCH (test code = 1006) 32.7 PG MCHC (test code = 1007) 34.9 G/DL RDW (test code = 1038) 12.8 % NEUTROPHILS (test code = 1008) 67.4 % LYMPHOCYTES (test code = 1010) 24.5 % MONOCYTES (test code = 1011) 6.2 % EOSINOPHILS (test code = 1012) 1.3 % BASOPHILS (test code = 1013) 0.6 % PLATELET COUNT (test code = 1015) 308 K/UL Bobby HerreraCOMPREHENSIVE METABOLIC [id number] 00:00:00* Test Item Value Reference Range Interpretation Comme nts GLUCOSE (test code = 2217) 177 MG/DL BUN (test code = 2208) 16 MG/DL CREATININE (test code = 2214) 0.78 MG/DL eGFR AMER. (test cod e = 63211) 102 ML/MIN/1.73 eGFR NON- AMER. (test code = 50856) 88 ML/MIN/1.73 CALC BUN/CREAT (test code = 2235) 21 RATIO SODIUM (test code = 2231) 142 MEQ/L POTASSIUM (test code = 2228) 3.8 MEQ/L CHLORIDE (test code = 2215) 103 MEQ/L CARBON DIOXIDE (test code = 2206) 24 MEQ/L CALCIUM (test code = 2209) 10.3 MG/DL PROTEIN, TOTAL (test code = 2229) 8.9 G/DL ALBUMIN (test code = 2201) 4.7 G/DL CALC GLOBULIN (test code = 2240) 4.2 G/DL CALC A/G RATIO (test code = 2234) 1.1 RATIO BILIRUBIN, TOTAL (test code = 2207) <0.2 MG/DL ALKALINE PHOSPHATASE (test code = 2204) 189 U/L AST (test code = 2218) 24 U/L ALT (test code = 2219) 40 U/L Bobby HerreraLIPID [id number] 00:00:00* Test Item Value Reference Range Interpretation Comme nts CHOLESTEROL (test code = 2210) 201 MG/DL TRIGLYCERIDES (test code = 2232) 123 MG/DL HDL CHOLESTEROL (test code = 2220) 54 MG/DL CALC LDL CHOL (test code = 2237) 122 MG/DL RISK RATIO LDL/HDL (test cod e = 2238) 2.27 RATIO Bobby [id number] 00:00:00* Test Item Value Reference Range Interpretation Comme liz TSH, THIRD GENERATION (test code = 2821) 1.670 UIU/ML Bobby HerreraHEMOGLOBIN [id number] 00:00:00* Test Item Value Reference Range Interpretation Comme liz HEMOGLOBIN A1c (test code = 76809) 11.5 % Bobby HerreraCBC W/AUTO [id number] 00:00:00* Test Item Value Reference Range Interpretation Comme nts WBC (test code = 1001) 9.7 K/UL RBC (test code = 1002) 4.59 M/UL HEMOGLOBIN (test code = 1003) 15.0 G/DL HEMATOCRIT (test code = 1004) 43.0 % MCV (test code = 1005) 93.7 fL MCH (test code = 1006) 32.7 PG MCHC (test code = 1007) 34.9 G/DL RDW (test code = 1038) 12.8 % NEUTROPHILS (test code = 1008) 67.4 % LYMPHOCYTES (test code = 1010) 24.5 % MONOCYTES (test code = 1011) 6.2 % EOSINOPHILS (test code = 1012) 1.3 % BASOPHILS (test code = 1013) 0.6 % PLATELET COUNT (test code = 1015) 308 K/UL Bobby HerreraCOMPREHENSIVE METABOLIC [id number] 00:00:00* Test Item Value Reference Range Interpretation Comme nts GLUCOSE (test code = 2217) 177 MG/DL BUN (test code = 2208) 16 MG/DL CREATININE (test code = 2214) 0.78 MG/DL eGFR AMER. (test cod e = 09762) 102 ML/MIN/1.73 eGFR NON- AMER. (test code = 08737) 88 ML/MIN/1.73 CALC BUN/CREAT (test code = 2235) 21 RATIO SODIUM (test code = 2231) 142 MEQ/L POTASSIUM (test code = 2228) 3.8 MEQ/L CHLORIDE (test code = 2215) 103 MEQ/L CARBON DIOXIDE (test code = 2206) 24 MEQ/L CALCIUM (test code = 2209) 10.3 MG/DL PROTEIN, TOTAL (test code = 2229) 8.9 G/DL ALBUMIN (test code = 2201) 4.7 G/DL CALC GLOBULIN (test code = 2240) 4.2 G/DL CALC A/G RATIO (test code = 2234) 1.1 RATIO BILIRUBIN, TOTAL (test code = 2207) <0.2 MG/DL ALKALINE PHOSPHATASE (test code = 2204) 189 U/L AST (test code = 2218) 24 U/L ALT (test code = 2219) 40 U/L Bobby HerreraLIPID [id number] 00:00:00* Test Item Value Reference Range Interpretation Comme nts CHOLESTEROL (test code = 2210) 201 MG/DL TRIGLYCERIDES (test code = 2232) 123 MG/DL HDL CHOLESTEROL (test code = 2220) 54 MG/DL CALC LDL CHOL (test code = 2237) 122 MG/DL RISK RATIO LDL/HDL (test cod e = 2238) 2.27 RATIO Bobby [id number] 00:00:00* Test Item Value Reference Range Interpretation Comme nts TSH, THIRD GENERATION (test code = 2821) 1.670 UIU/ML Bobby HerreraHEMOGLOBIN [id number] 00:00:00* Test Item Value Reference Range Interpretation Comme nts HEMOGLOBIN A1c (test code = 34533) 11.5 % Bobby HerreraCBC W/AUTO [id number] 00:00:00* Test Item Value Reference Range Interpretation Comme nts WBC (test code = 1001) 9.7 K/UL RBC (test code = 1002) 4.59 M/UL HEMOGLOBIN (test code = 1003) 15.0 G/DL HEMATOCRIT (test code = 1004) 43.0 % MCV (test code = 1005) 93.7 fL MCH (test code = 1006) 32.7 PG MCHC (test code = 1007) 34.9 G/DL RDW (test code = 1038) 12.8 % NEUTROPHILS (test code = 1008) 67.4 % LYMPHOCYTES (test code = 1010) 24.5 % MONOCYTES (test code = 1011) 6.2 % EOSINOPHILS (test code = 1012) 1.3 % BASOPHILS (test code = 1013) 0.6 % PLATELET COUNT (test code = 1015) 308 K/UL Bobby HerreraCOMPREHENSIVE METABOLIC [id number] 00:00:00* Test Item Value Reference Range Interpretation Comme nts GLUCOSE (test code = 2217) 177 MG/DL BUN (test code = 2208) 16 MG/DL CREATININE (test code = 2214) 0.78 MG/DL eGFR AMER. (test cod e = 45299) 102 ML/MIN/1.73 eGFR NON- AMER. (test code = 56434) 88 ML/MIN/1.73 CALC BUN/CREAT (test code = 2235) 21 RATIO SODIUM (test code = 2231) 142 MEQ/L POTASSIUM (test code = 2228) 3.8 MEQ/L CHLORIDE (test code = 2215) 103 MEQ/L CARBON DIOXIDE (test code = 2206) 24 MEQ/L CALCIUM (test code = 2209) 10.3 MG/DL PROTEIN, TOTAL (test code = 2229) 8.9 G/DL ALBUMIN (test code = 2201) 4.7 G/DL CALC GLOBULIN (test code = 2240) 4.2 G/DL CALC A/G RATIO (test code = 2234) 1.1 RATIO BILIRUBIN, TOTAL (test code = 2207) <0.2 MG/DL ALKALINE PHOSPHATASE (test code = 2204) 189 U/L AST (test code = 2218) 24 U/L ALT (test code = 2219) 40 U/L Bobby HerreraLIPID [id number] 00:00:00* Test Item Value Reference Range Interpretation Comme nts CHOLESTEROL (test code = 2210) 201 MG/DL TRIGLYCERIDES (test code = 2232) 123 MG/DL HDL CHOLESTEROL (test code = 2220) 54 MG/DL CALC LDL CHOL (test code = 2237) 122 MG/DL RISK RATIO LDL/HDL (test cod e = 2238) 2.27 RATIO Bobby [id number] 00:00:00* Test Item Value Reference Range Interpretation Comme liz TSH, THIRD GENERATION (test code = 2821) 1.670 UIU/ML Bobby HerreraHEMOGLOBIN [id number] 00:00:00* Test Item Value Reference Range Interpretation Comme liz HEMOGLOBIN A1c (test code = 31340) 11.5 % Bobby Radha Javier History and Physical Notes Date/Time Note Provider Source 2023-09-18 07:16:16 Patient was sen and examined on 09/18/23 No changes in her health since last seen in clinic on 08/24/23 We will only do a colonoscopy and no EGD since her insurance does not cover EGD Risks and benefits discussed Diana Basilio MD Source Note - Diana Basilio MD - 08/24/2023 2:30 PM CDT GENERAL SURGERY CLINIC NOTE Reason for Visit / Chief Complaint: Screening colonoscopy History of Present Illness: Bela Tilley is a 57 year old female with PMHx as below who presents for screening colonoscopy. Reports having one 7 years ago at OSH which only identified hemorrhoids, was told to return in 5 years due to sister with a history of polyps. Denies constipation, diarrhea, abdominal pain, straining, blood in stool. Has 3-4 bowel movements/day since starting Metformin. No family history of colorectal cancer or IBD. Also reports longstanding history of reflux, indigestion, heartburn for which she has tried Nexium but reports taking baking soda helps. Past Medical History: Past Medical History: Diagnosis Date Essential (primary) hypertension Fibroid GERD (gastroesophageal reflux disease) Type 2 diabetes mellitus without complications Past Surgical History: Past Surgical History: Procedure Laterality Date SECTION x3 Allergies: No Known Allergies Family History: Family History Problem Relation Age of Onset Hypertension Mother Diabetes Father Hypertension Father Social History: Social History Socioeconomic History Marital status: Single Tobacco Use Smoking status: Never Smokeless tobacco: Never Substance and Sexual Activity Alcohol use: Yes Alcohol/week: 1.0 standard drink of alcohol Types: 1 Glasses of wine per week Comment: rarely Drug use: Never Review of Systems (BOLDED if positive. Otherwise negative.) General: weight changes, fatigue, fever Eyes: corrective lenses, pain, blurred vision ENT: hearing problems, earaches, allergies, nose bleeds Skin: rashes, lumps Respiratory: cough, wheeze, shortness of breath Cardiac: chest discomfort, palpitations Gastrointestinal: swallowing problems, nausea/vomiting, blood in stool, abdominal pain Musculoskeletal: muscle cramps, back pain, joint pain, weakness, tingling, pain in feet Immunologic: food allergies, recurrent infections Urinary: increased frequency, burning, urinating at night, incontinence, blood in urine Psychiatric: anxiety, depression Endocrine: thyroid trouble, diabetes Neurologic: fainting, seizures, loss of memory, headaches, numbness, stroke Hematologic: anemia, bleeding problems, transfusion reaction Physical Exam: BP (!) 175/106 (BP Location: Right arm, Patient Position: Sitting, BP CUFF SIZE: Adult Large) | Pulse 88 | Temp 37.2 ?C (98.9 ?F) (Temporal Artery) | Resp 18 | Ht 1.6 m (5' 3") | Wt 89.5 kg (197 lb 6.4 oz) | SpO2 97% | BMI 34.97 kg/m? Constitutional: Awake, alert, oriented, in no acute distress Cardiovascular: Hemodynamically stable Respiratory: Symmetry of chest wall motion, no respiratory distress GI: Soft, nontender, non-distended Labs: No new labs Assessment: Bela Tilley is a 57 year old female with PMHx as below who presents for screening colonoscopy. Last colonoscopy 7 years ago showed hemorrhoids but recommended 5 year screening due to sister with polyps. Also with longstanding reflux, so will plan for EGD at the same time Plan: Plan for colonoscopy and EGD with Dr. Basilio. Will call to schedule Consent [facility] today [facility] Lucho Shields MD General Surgery PGY-3 I personally examined the patient on 08/24/[address] Shields's resident note as written . I actively participated in the decision-making process. Please see the resident's note for additional details. Diana Basilio MD LEANA-SURGERY STAFF [facility] Notes Date/Time Note Provider Source Bobby Mack [facility]2025-03-10 00:00:00 Bboby Mack [facility]2025-02-10 00:00:00 Bobby Mack [facility]2025-01-09 00:00:00 Bobby Jacklyn [facility]2024-10-29 12:06:42 Access Center: [facility] Open Encounter Maintenance This is being sent to you as part of [employer] Chart Maintenance. The encounter has been open longer than 72 hours. Encounter closed. Bruna Solitario [facility] CenterTlqizz1286-99-27 15:12:28 Name and verified. Pt stated that she has new insurance and wanted to see if we accept it. Transferred her to [facility]. KILEY LOVE RN 02/12/2024 3:12 PM Kiley Love [place] [id number] 16:27:26 Lm on for pt to return call. KILEY LOVE RN 02/11/2024 4:27 PM [facility]kjejo4620-75-00 14:44:41 Bela Tilley is a 58 year old female Pt would like a gladys back to discuss upcoming appt. Please assist Vanita DodsonUC Medical CenterSuxoow7223-62-24 13:00:00 Images from the original note were not included. Venipuncture collection performed by clean technique on the left anticubitus. Total of 2 attempts were made. Slight pressure and a bandage/dressing were applied to the site(s). The patient experienced no complications. The following specimens were processed according to instructions and sent to [facility] laboratories per lab order on 11/20/2023: LT BLUE SST 1 RED LAV 2 PPT DK GREEN (LiHep) DK GREEN (SodH) [place] DK BLUE (K2) DK BLUE (S) ACD Blood Culture NIPT/NTD Patient has been identified by and name and was provided with cup, antiseptic towelette, and clean catch instructions. 1 urine specimen(s) sent. Unpreserved 1 Urine Culture Aptima tube Other urine [facility] CenterMcguli1848-17-89 15:15:00 Appt made. KILEY LOVE RN 10/27/2023 3:15 PM Kiley Love [facility] CenterEenodz9015-90-34 14:27:43 Patient has been contacted, and scheduled for f/up. Ariane Nuñez [facility] CenterDisgnv8558-93-28 14:11:19 Patient called and informed appointment with MD would be needed to discuss surgery per Mrs Saavedra's note. Patient offered visit tomorrow with . Patient verbalized understanding. Ariane Nuñez MA 10/12/2023 2:13 PM Ariane Nuñez [place] [id number] 08:08:42 Patient is calling back and would like to proceed with having her fibroids removed. She would like to receive a call back with the date it would be scheduled. Please advise Kiley AppiahUC Medical CenterEdzhac4611-70-02 14:27:50 Attempted to contact patient. No answer, VM left. Bernabe Henley RN 10/09/2023 2:27 PM Bernabe Henley [facility] CenterYgreae4882-70-00 14:27:43 Please let pt know that Dr. Beltrán has recommended Pelvic MRI as requested after her last pelvic US. Also please assist to schedule appt with Dr. Beltrán for surgical consult. Thanks T [facility] CenterPvpvnd7509-28-53 12:23:48 Patient would like to proceed with having her fibroids removed. She would like to receive a call back with the date it would be scheduled. Please advise. Katrin MarshAtrium Health LincolnGoizob1865-63-70 09:03:00 Addended by: DANA BELTRÁN on: 10/20/2023 03:04 PM Modules accepted: Orders T [facility] CenterWveyln2618-84-12 08:54:52 Client stated being instructed per pre-procedure phone call to only take one blood pressure medication morning of procedure. Informed client that blood pressure has been running slightly high during visit. Instructed client to take other blood pressure medications when arriving at home. Instructed client to take blood pressure checks regularly and report them to PCP. Client verbalized understanding. Instructions confirmed with Dr. Garland (anesthesia). Alicia Fam RNUC Medical CenterOgrkzi8586-69-13 16:14:51 Images from the original note were not included. Your upcoming procedure is at [facility] on 09/18/23. The address is [address] [place] [address], [facility], [id number].The nursing staff at [facility] will call you the workday before your procedure to let you know what time to arrive. When you arrive, please go inside and sign in at the desk. Please note: You may not travel home alone after your procedure and that includes in a taxi or by bus. We must speak to your Responsible Adult (who will be picking you up) the morning of your procedure, before the start of your procedure. This person must be an adult over the age of 18 years of age. Maintain a clear liquid diet the entire day before your procedure. Do not drink anything containing red, blue, or purple dyes. Follow the instructions of your bowel prep as directed by you physician. You may also take your medications the morning of your procedure with a sip of water as directed by physician. Anticoagulants will be per physician Guidance. Medication Note(s)/Instructions: Will hold Ozempic dose due on 09/17/23. Instructed to hold lisinopril day before and morning of procedure and hold glipizide morning of procedure. Both patient and person accompanying and/or picking patient up must be able to wear a mask and be without symptoms of COVID 19. Pending screening, a COVID test may be required. If a patient tests positive, their cases are cancelled and/or rescheduled. COVID NOTE: Denies COVID symptoms or exposure, no testing required. Additional questions, concerns, requests:Emailed copy of bowel prep instructions per patient request. CB numbers and availability provided. Patient verbalized understanding of pre-op instructions and voiced no further questions at this time. T [facility] CenterOxnvxf1860-69-64 14:40:13 Attempted to call patient, LVM stating medication has been re-ordered. Clarita Cazares MA 09/04/2023 2:42 PM T [facility] CenterIfkqoi2270-80-06 14:27:46 Bela Tilley is a 58 year old female and is calling about a medication refill request for atorvastatin. Pt stated her [facility] pharmacy is not receiving the medication script in their system and won't fill her medication. Asking to please re-send her medication script in. Jamilah MojicaUC Medical CenterOfdvuk9148-71-49 10:36:44 Rx sent to pharmacy. [place] [id number] 14:16:04 Images from the original note were not included. .refused-refills should remain. A new rx was sent 08/24/23 Notes: atorvastatin 20 mg tablet Possible duplicate: Hover to review recent actions on this medication Sig: Take 1 tablet by mouth at bedtime. Disp: 90 tablet Refills: 2 Start: 09/02/2023 Class: eRX For: Mixed hyperlipidemia Last ordered: 1 week ago (08/24/2023) by Philip Veliz NP Cardiovascular: Antilipid - HMG-CoA Reductase Inhibitors Hfgjba3509/02/2023 12:33 PM Protocol Details AST in normal range and within 360 days ALT in normal range and within 360 days Valid encounter within last 12 months Total Cholesterol within 360 days LDL within 360 days HDL within 360 days Triglycerides within 360 days To be filled at: [address] Last Refilled: 08/24/23 Recent Visits Date Type Provider Dept 08/14/23 Office Visit Philip Veliz NP [facility] Showing recent visits within past 540 days with a meds authorizing provider and meeting all other requirements Future Appointments Date Type Provider Dept 11/20/23 Appointment Philip Veliz NP [facility] Family Medicine Showing future appointments within next 150 days with a meds authorizing provider and meeting all other requirements [place] 305024-04-19 15:59:59 Informed patient wrong DX code was added to prescription. Prescription (Ozempic) has been sent to [facility] pharmacy with correct DX code. [place] 305024-04-19 15:46:55 Copied from [facility] #[id number]. Topic: Clinical - Order >> Aug 14, 2023 3:45 PM Patient Russian Teacher wrote: Bela Tilley is a 57 year old female Pt is calling stating that she is not able to get her semaglutide (OZEMPIC) 0.25 mg or 0.5 mg(2 mg/1.5 mL) PnIj 0.25 mg, Subcutaneous, QWEEKLY Due to the cost. Please advise. [phone] Marbella LeUC Medical CenterDofuoq6339-51-22 13:00:00 Images from the original note were not included. Venipuncture collection performed by clean technique on the left anticubitus. Total of 1 attempts were made. Slight pressure and a bandage/dressing were applied to the site(s). The patient experienced no complications. The following specimens were processed according to instructions and sent to [facility] laboratories per lab order on 08/14/2023 : LT BLUE SST 1 RED LAV 2 PPT DK GREEN (LiHep) DK GREEN (SodH) [place] DK BLUE (K2) DK BLUE (S) ACD Blood Culture NIPT/NTD [facility] [place] [id number] 19:36:00 [facility] ([facility]) EMERGENCY PROVIDER REPORT REPORT#:[id number] REPORT STATUS: Signed DATE:03/16/19 TIME: 1935 PATIENT: BELA TILLEY UNIT #: [id number] ROOM: BED: AGE: 53 SEX: F PCP PHYS: No Primary or Family Physician SERVICE AUTHOR: Toni James DO * ALL edits or amendments must be made on the electronic/computer document * HPI-Head Prob/Injury General Confirmed Patient Yes Patient Type New patient Initial Greet Date/Time 03/16/191928 Presentation Chief Complaint Laceration Hx Obtained From [employer] Superintendent )( Onset Occurred Today Symptom Duration Constant Progression since Onset Waxes and wanes Location Right side of forehead Quality Painful Associated Other Pt denies other symptoms Exacerbated by Nothing Relieved by Nothing Free Text HPI Notes Free Text HPI Notes 53 year old female presents to the ED with c/o head injury that happened today. 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 Associated sx include dizziness. Denies neck pain and LOC. Unknown if pt is UTD with tetanus shot. Portions of this section were scribed by Brionna Chin on 03/16/19 at 2314 Risk-Head Prob/Injury Risk Stratification )( Solitario Coma Score > Age 5 )( Solitario Coma Score > Age 5 Response Value Eye Opening Open spontaneously (4) 4 Verbal Response Oriented (5) 5 Motor Response Obeys commands (6) 6 Total 15 )( Intracranial Bleed Risk factors reviewed, Risk factors N/A Portions of this section were scribed by Brionna Chin on 03/16/19 at 1936 Review of Systems ROS Statements All systems rev neg except as marked. Focused Review of Systems Musculoskeletal Denies: Back pain, Neck pain. Neurologic Reports: Dizziness, Headache. Denies: Change LOC. Portions of this section were scribed by Brionna Chin on 03/16/19 at 1936 Past Medical History - Adult Stated Complaint LACERATION Allergies Coded Allergies: No Known Allergies (03/16/19) Pt reports no significant: Past medical history, Past surgical history, Family history, Social history Other Social History Local resident, Good social support Portions of this section were scribed by Brionna Chin on 03/16/19 at 1936 Physical Exam Vital Signs Vital Signs First Documented: Result Date Time Pulse Ox 98 03/16 1924 B/P 165/97 03/16 1924 B/P Mean 119 03/16 1924 O2 Delivery Room air 03/16 1924 Temp 36.6 03/16 1924 Pulse 80 03/16 1924 Resp 17 03/16 1924 Last Documented: Result Date Time Pulse Ox 98 03/16 1924 B/P 165/97 03/16 1924 B/P Mean 119 03/16 1924 O2 Delivery Room air 03/16 1924 Temp 36.6 03/16 1924 Pulse 80 03/16 1924 Resp 17 03/16 1924 Review of Vital Signs Reviewed Focused PE General/Const General/Const Awake, Alert, No acute distress MS Head Head Atraumatic, Normocephalic Text/Dict Notes Hematoma and swelling to the right side of forehead. 2 cm laceration to the right side of forehead, bleeding is controlled. Eyes Eyes EOMI, Conjunctiva NL Ears/Nose/Throat Ears/Nose/Throat Atraumatic, Mucous membranes moist MS Neck Neck Supple, No swelling, Non-tender Resp/Chest Respiratory/Chest Breath sounds NL, Breath sounds = bilat, No respiratory distress Cardiovascular Cardiovascular Heart rate NL, Regular rhythm, Heart sounds NL Skin Skin Color NL, No rash, Warm, Dry Neurologic Neurologic Oriented X3, No motor deficits, No sensory deficits Additional PE Abdomen/GI Abdomen/GI Soft, Non-tender, BS normoactive, No distention Portions of this section were scribed by Brionna Chin on 03/16/19 at 204 Interpretation Diagnostics Lab Results Interpretation Results Recent Impressions: CAT SCAN - CT HEAD/BRAIN W/O CONT 03/16 1950 Report Impression - Status: SIGNED Entered: 03/16/20192014 IMPRESSION: No acute intracranial abnormality is detected. Impression By: [email or web address] - Guido Berkowitz MD Imaging Statement Radiographic studies reviewed and considered in the medical decision-making. Point of Care Testing Pulse Oximetry Pulse Ox % 98 On: Room air Interpretation Interpreted by me, Pulse oximetry normal Time 4 Portions of this section were scribed by Brionna Chin on 03/16/19 at 2033 Procedures Laceration Management #1 Time 2019 Procedure Performed by ED physician Consent/Setup/Site Prep Verified correct patient, Informed consent provided, Consent from patient, Time-out performed, Hand hygiene observed, Stand sterile technique )( Location of Wound Right upper side of forehead )( Wound Length (cm) 2 Local Anesthesia Lidocaine 1% w epi (2ccs) Wound Preparation Hibiclens - Chlorhexidine )( Debridement None Irrigation Copious Repair Subcutaneous ___ O (5), Vicryl # Sutures - SubQ 1 Repair Fascia ___ O (6), Prolene Closure Layers 2 Post-Procedure/Complications Dressing applied, No complications, Condition improved, Tolerated procedure well, Patient stable Portions of this section were scribed by Brionna Chin on 03/16/19 at 2035 Re-Evaluation MDM Re-Evaluation/Progress #1 Time of Re-Eval 2035 Re-Eval Status Improved Plan Post Re-Eval Plan discharge ED Course Medication(s) Ordered Medication(s) Ordered: Central Nervous System Agents Sig/Chuy Start time Last Medication Dose Route Stop Time Status Admin Ibuprofen 800 MG ONCE ONE 03/16 2045 DC 03/16 PO 03/16 Acetaminophen 1,000 MG X1ED STA 03/16 1934 DC 03/16 PO 03/16 Serums, Toxoids, And Vaccines Sig/Chuy Start time Last Medication Dose Route Stop Time Status Admin Tetanus/Diphtheria 0.5 ML X1ED STA 03/16 1934 DC 03/16 Toxoids IM 03/16 Portions of this section were scribed by Brionna Chin on 03/16/19 at 2314 Patient Discharge Departure Vital Signs/Condition Vital Signs First Documented: Result Date Time Pulse Ox 98 03/16 1924 B/P 165/97 03/16 1924 B/P Mean 119 03/16 1924 O2 Delivery Room air 03/16 1924 Temp 36.6 03/16 1924 Pulse 80 03/16 1924 Resp 17 03/16 1924 Last Documented: Result Date Time Pulse Ox 98 03/16 1924 B/P 165/97 03/16 1924 B/P Mean 119 03/16 1924 O2 Delivery Room air 03/16 1924 Temp 36.6 03/16 1924 Pulse 80 03/16 1924 Resp 17 03/16 1924 All vital signs available at the time of this entry have been reviewed. Condition Improved, Stable Clinical Impression Clinical Impression Primary Impression: Head injury Secondary Impressions: Forehead laceration Disposition Decision Discharge )( Discharged to Home Yes )( Time 2033 )( Date 03/16/19 Discharge/Care Plan Counseled Regarding Diagnosis, Imaging studies, Prescriptions, Need for follow- up, When to return to ED Prescriptions Tylenol with codeine Discharge Note I have spoken with the patient and/or caregivers. I have explained the patient's condition, diagnoses and treatment plan based on the information available to me at this time. I have answered the patient's and/or caregiver's questions and addressed any concerns. The patient and/or caregivers have as good an understanding of the patient's diagnosis, condition and treatment plan as can be expected at this point. The vital signs have been stable. The patient's condition is stable and appropriate for discharge from the emergency department. The patient will pursue further outpatient evaluation with the primary care physician or other designated or consulting physician as outlined in the discharge instructions. The patient and/or caregivers are agreeable to this plan of care and follow-up instructions have been explained in detail. The patient and/or caregivers have received these instructions in written format and have expressed an understanding of the discharge instructions. The patient and/or caregivers are aware that any significant change in condition or worsening of symptoms should prompt an immediate return to this or the closest emergency department or a call to 911. Supervising Physician Note Scribe Statement Brionna Chin, 03/16/192040, scribing for and in the presence of [Toni James DO]. Signed By: Brionna Chin, 03/16/192040 Provider Scribed Statement I personally performed the services described in this documentation and reviewed the documentation that was dictated to the scribe(s) in my presence, and it accurately records my words and actions. Toni James DO 03/16/19 Portions of this section were scribed by Brionna Chin on 03/16/19 at 2041 at [id number] [facility] #:[id number] END OF REPORTHCANW
--- NOTE | 2024-08-12 01:45 | EDPHYS ---
Physician Documentation [facility] Name: Bela Tilley Age: 58 yrs Sex: Female : 1965 Arrival Date: 08/11/2024 Time: 21:59 Bed 9 Private MD: STEVE Physician See To HPI: 08/11 23:35 This 58 yrs old Black Female presents to ER via Wheelchair with complaints of Foot cp Injury. 23:35 The patient presents with an injury, pain, that is acute, swelling, tenderness. The cp complaints affect the lateral aspect of left foot. Context: must have assistance, Problem is a result from a previous injury: No. misstep and fall. Onset: The symptoms/episode began/occurred today. Associated signs and symptoms: The patient has no apparent associated signs or symptoms. Historical: - Allergies: 23:19 No Known Allergies; iw - PMHx: 23:19 Anemia; diabetes mellitus; Hypertension; iw - PSHx: 23:19 None; iw - Immunization history:: Adult Immunizations up to date. - Infectious Disease History:: Denies. - Social history:: Smoking status: Patient denies any tobacco usage or history of. ROS: 23:40 MS/extremity: Positive for pain, swelling, tenderness, of the lateral side of left cp foot, Negative for paresthesias, 23:40 Constitutional: Negative for body aches, chills, fever, poor PO intake, cp 23:40 Neck: Negative for pain with movement, pain at rest, 23:40 Back: Negative for pain at rest, pain with movement, 23:40 All other systems are negative, Exam: 23:45 Constitutional: The patient appears in no acute distress, alert, awake, well developed, cp well nourished, 23:45 Head/Face: Normocephalic, atraumatic. cp 23:45 Neck: ROM/movement: is normal, is supple, without pain, no range of motions limitations, 23:45 Chest/axilla: Inspection: normal, 23:45 Cardiovascular: Rate: normal, 23:45 Respiratory: the patient does not display signs of respiratory distress, Respirations: normal, 23:45 Back: pain, is absent, ROM is normal, 23:45 Musculoskeletal/extremity: Extremities: noted in the lateral side of left foot: pain, swelling, tenderness, skin intact, Perfusion: the extremity is normally perfused throughout, the left foot Sensation intact. Vital Signs: 23:17 BP 185 / 94; Pulse 91; Resp 18; Temp 98; Pulse Ox 100% on R/A; Weight 85.28 kg; Height iw 5 ft. 3 in. ; Pain 10/; 08/12 03:00 BP 191 / 98; Pulse 70; Resp 17; Pulse Ox 98% ; Pain 10/10; jj7 08/11 23:17 Body Mass Index 33.30 (85.28 kg, 160.02 cm) iw 08/11 23:17 Pain Scale: Adult iw 08/12 03:00 Pain Scale: Adult jj7 MDM: 08/11 23:22 Medical Screening Exam initiated cp 08/11 23:32 Order name: XRAY Foot LEFT 3 View cp 08/12 00:41 Order name: Crutches; Complete Time: 03:31 cp 08/12 00:41 Order name: Splint Leg: Short Leg: non-weight bearing; Complete Time: 03:31 cp Administered Medications: 08/12 02:59 Drug: HYDROcodone-acetaminophen PO 10 mg-325 mg 1 tabs PO once Route: PO; jj7 03:31 Follow up: Response: Pain is decreased jj7 02:59 Drug: Ibuprofen PO 800 mg PO once Route: PO; jj7 03:31 Follow up: Response: Pain is decreased jj7 Disposition Summary: 08/12/24 01:44 Discharge Ordered Notes: Location: Home cp Problem: new cp Symptoms: have improved cp Condition: Stable cp Diagnosis - Nondisplaced fracture of fifth metatarsal bone, left foot cp Followup: cp - With: Bebeto Butler MD - When: 1 week - Reason: Recheck today's complaints Discharge Instructions: - Discharge Summary Sheet cp - Metatarsal Fracture cp Forms: - Medication Reconciliation Form cp - Antibiotic Education cp - Prescription Opioid Use cp - Patient Portal Instructions cp - Leadership Thank You Letter cp Prescriptions: - Anaprox DS 550 mg Oral Tablet - take 1 tablet ORAL route every 12 hours As needed; 20 tablet; Refills: 0, cp Product Selection Permitted - Tylenol-Codeine #3 300mg-30mg Oral tablet - take 1 tablet ORAL route every 4 hours As needed; 16 tablet; Refills: 0, cp Product Selection Permitted Addendum: 08/13/2024 08:11 Co-signature as Attending Physician, See To MD I agree with the assessment and c moyer plan of care. Signatures: Dispatcher [employer] See Watt MD MD cha Williams, Irene, RN RN See Quan PA PA cp Johnson, Juwairiyah, RN RN jj7
--- NOTE | 2024-08-12 01:45 | ER ---
Nurse's Notes [facility] Name: Bela Tilley Age: 58 yrs Sex: Female : 1965 Arrival Date: 08/11/2024 Time: 21:59 Bed 9 Private MD: Diagnosis: Nondisplaced fracture of fifth metatarsal bone, left foot Presentation: 08/11 23:18 Chief complaint: Patient states: was working out, went home, fell at home, twisted her iw left foot. Coronavirus screen: At this time, the client does not indicate any symptoms associated with coronavirus-19. Ebola Screen: No symptoms or risks identified at this time. Initial Sepsis Screen: Does the patient meet any 2 criteria? No. Patient's initial sepsis screen is negative. Does the patient have a suspected source of infection? No. Patient's initial sepsis screen is negative. Risk Assessment: Do you want to hurt yourself or someone else? Patient reports no desire to harm self or others. Onset of symptoms was August 11, 2024. 23:18 Method Of Arrival: Wheelchair iw 23:18 Acuity: TABBY 4 iw Historical: - Allergies: 23:19 No Known Allergies; iw - PMHx: 23:19 Anemia; diabetes mellitus; Hypertension; iw - PSHx: 23:19 None; iw - Immunization history:: Adult Immunizations up to date. - Infectious Disease History:: Denies. - Social history:: Smoking status: Patient denies any tobacco usage or history of. Screenin/18 03:00 [facility] ED Fall Risk Assessment (Adult) History of falling in the last 3 months, jj7 including since admission Yes- single mechanical fall (1 pt) Confusion or Disorientation No (0 pts) Intoxicated or Sedated No (0 pts) Impaired Gait No (0 pts) Mobility Assist Device Used No (0 pt) Altered Elimination No (0 pt) Score/Fall Risk Level 0 - 2 = Low Risk Oriented to surroundings, Maintained a safe environment, Educated pt \T\ family on fall prevention, incl call for assistance when getting out of bed, Assessed \T\ reinforced patient's understanding of fall precautions. Abuse screen: Denies threats or abuse. Nutritional screening: No deficits noted. Tuberculosis screening: No symptoms or risk factors identified. Assessment: 03:00 Reassessment: ASSUMED CARE OF PT. PT MOVED INTO BED. ORDERED MEDS GIVEN. BP ELEVATED. jj7 PT TAKING HER HOME BP MEDS SHE DID NOT TAKE TONIGHT. FAMILY AT BEDSIDE. CALL AGUIRRE IN REACH. Pain: Complains of pain in lateral side of left foot Pain currently is 10 out of 10 on a pain scale. Musculoskeletal: Reports pain in lateral side of left foot. 03:00 General: Appears in no apparent distress. uncomfortable, Behavior is calm, cooperative, jj7 appropriate for age. Vital Signs: 08/11 23:17 BP 185 / 94; Pulse 91; Resp 18; Temp 98; Pulse Ox 100% on R/A; Weight 85.28 kg; Height iw 5 ft. 3 in. ; Pain 10/10; 08/12 03:00 BP 191 / 98; Pulse 70; Resp 17; Pulse Ox 98% ; Pain 10/10; jj7 08/11 23:17 Body Mass Index 33.30 (85.28 kg, 160.02 cm) iw 08/11 23:17 Pain Scale: Adult iw 08/12 03:00 Pain Scale: Adult jj7 ED Course: 08/11 22:00 Patient arrived in ED. gm2 22:20 See Fisher PA is PHCP. cp 22:20 See To MD is Attending Physician. cp 23:19 Triage completed. iw 23:19 Arm band placed on. iw 08/12 00:01 XRAY Foot LEFT 3 View In Process Unspecified. EDMS 01:43 Bebeto Butler MD is Referral Physician. cp 02:58 Gonsalo Omer RN is Primary Nurse. jj7 03:00 Patient has correct armband on for positive identification. Bed in low position. Call jj7 light in reach. Adult w/ patient. Provided Education on: USE OF CALL AGUIRRE. Warm blanket given. 03:31 Patient did not have IV access during this emergency room visit. Orthoglass splint: jj7 Posterior short lleg splint applied on left leg. 03:33 Crutch training done. Orthoglass splint: Posterior short lleg splint applied on left oe leg. 03:35 No provider procedures requiring assistance completed. jj7 Administered Medications: 02:59 Drug: HYDROcodone-acetaminophen PO 10 mg-325 mg 1 tabs PO once Route: PO; jj7 03:31 Follow up: Response: Pain is decreased jj7 02:59 Drug: Ibuprofen PO 800 mg PO once Route: PO; jj7 03:31 Follow up: Response: Pain is decreased j7 Medication: 03:00 VIS not applicable for this client. jj7 Outcome: 01:44 Discharge ordered by . cp 03:35 Patient left the ED. jj7 03:35 Discharged to home with crutches, with family, jj7 03:35 Condition: improved 03:35 Discharge instructions given to patient, Instructed on discharge instructions, follow up and referral plans. medication usage, Demonstrated understanding of instructions, follow-up care, medications, Prescriptions given X 2, Signatures: Dispatcher [employer] EDMS Abimbola Jackman RN RN iw See Fisher PA PA cp Garcia, Cindy, MELI RN Fabricio Cristina Juwairiyah, RN RN Bing Monroe gm2 Corrections: (The following items were deleted from the chart) 04 23:19 23:17 Resp 18bpm; Pulse Ox 100% RA; Temp 98F; iw jeremie 04 03:50 03:48 Patient left the ED. cg jj7
[2024-08-12] MEDS ORDERED: IBUPROFEN 400 MG TAB ONE (02:48)
[2024-08-12] MEDS ORDERED: HYDROCODONE/APAP 10/325 TAB ONE (02:48)
[2024-08-12 03:52] VITALS: TEMP 98
[2024-08-12 03:54] VITALS: BP 191/98; O2SAT 98
--- NOTE | 2024-08-12 05:34 | RAD REPORT ---
EXAM DESCRIPTION: Foot Left 3 View CLINICAL HISTORY: PAIN TECHNIQUE: Three views of the left foot are submitted. COMPARISON: None available for comparison FINDINGS: Bones: Nondisplaced fracture at the base of the fifth metatarsal Joints: Degenerative changes of the first metatarsophalangeal joint. Soft tissues: No evidence of soft tissue pathology. IMPRESSION: Nondisplaced fracture at the base of the fifth metatarsal. Electronically signed by: Anderson Krueger MD 08/12/2024 12:59 AM CDT RP Due to temporary technical issues with the PACS/Germin[employer] reporting system, reports are being vitor d by the in-house radiologist without review as a courtesy to ensure prompt reporting the interpreting radiologist is fully responsible for the content of the report. Transcribed Date/Time: 08/12/2024 5:34 AM
== END 2024-08-12 03:48 | disposition home or self-care (01) ==
LOC: ER 21:59
PROC: 2W3TX1Z Immobilization of Left Foot using Splint (ICD-10-PCS; principal; 2024-08-12)
DX: S92.355A Nondisplaced fracture of fifth metatarsal bone, left foot, initial encounter for closed fracture (principal)
CPT/HCPCS: 99283